=== PATIENT | female | born 1985 | race Two or more races ===

== ENCOUNTER 2025-03-20 01:23 | Emergency (ER) | payer OTHER, SELFPAY ==
[2025-03-20 01:27] VITALS: BP 127/94; PULSE 102; TEMP 36.7; O2SAT 100; BMI 25.7
--- OUTSIDE RECORDS SUMMARY | 2025-03-20 01:36 | XMS_ITS | Encounter Summary ---
Author Organization [facility] Address [address] [place] [address] Care Team Providers Care Dishcloth Folder Name Role Phone Aiden Bailey MD Primary Care Provider [phone] Encounter Details Date Type Department Care Team ([facility] Contact Info) Description 01/06/2025 Results Follow-Up [facility] [address] [facility] [address] [place] [id number] Amol Echevarria MD [address] [facility] [address] [place] [address] Social History Tobacco Use Types Packs/Day Years Used Date Smoking Tobacco: Former Cigarettes 0 08/26/2003 - 08/26/2005 Passive Smoke Exposure: Never Smokeless Tobacco: Never Alcohol Use Standard Drinks/Week Comments Yes 2 (1 standard drink = 0.6 oz pure alcohol) Caffeine intake: 1-2 cups per day coffee B1300 Health Literacy Answer Date Recor ded How often do you need to hav e someone help you when you read instructions, pamphlets, or other written material from your doctor or pharmacy? Never 05/29/2024 Humiliation, Afraid, Rape, and Kick questionnair e Answer Date Recorded Within the last year, have y ou been afraid of your partner or ex-partner? No 04/17/2023 Within the last year, have y ou been humiliated or emotionally abused in other ways by your partner or ex-partner? No Within the last year, have y ou been kicked, hit, slapped, or otherwise physically hurt by your partner or ex-partner? No 04/17/2023 Within the last year, have y ou been raped or forced to have any kind of sexual activity by your partner or ex-partner? No 04/17/2023 Social Connection and Isolat ion Panel [NHANES] Answer Date Recorded In a typical week, how many times do you talk on the phone with family, friends, or neighbors? More than three times a week 05/29/2024 How often do you get togethe r with friends or relatives? More than three times a week 05/29/2024 How often do you attend chur or yarsanism services? Never 05/29/2024 Do you belong to any clubs o r organizations such as orthodox groups, unions, fraternal or athletic groups, or school groups? No 05/29/2024 How often do you attend meet ings of the clubs or organizations you belong to? Never 05/29/2024 Are you , , di vorced, , never , or living with a partner? 05/29/2024 AUDIT-C Answer Date Recorded Q1: How often do you have a drink containing alc ohol? 2-4 times a month 05/29/2024 Q2: How many drinks containi ng alcohol do you have on a typical day when you are drinking? 1 or 2 05/29/2024 Q3: How often do you have si x or more drinks on one occasion? Never 05/29/2024 Overall Financial Resource Strain (CARDIA) Answe r Date Recorded How hard is it for you to pa y for the very basics like food, housing, medical care, and heating? Not hard at all 05/29/2024 PHQ-2 Answer Date Recorded Patient Health Questionnaire-2 Score 0 01/07/2025 [facility] - Occupational Stress Questionnaire Answer Date Recorded Do you feel stress - tense, restless, nervous, or anxious, or unable to sleep at night because your mind is troubled all the time - these days? Not at all 05/29/2024 Exercise Vital Sign Answer Date Recorde d On average, how many days pe r week do you engage in moderate to strenuous exercise (like a brisk walk)? 0 days 05/29/2024 On average, how many minutes do you engage in exercise at this level? 0 min 05/29/2024 Hunger Vital Sign Answer Date Recorded Within the past 12 months, y ou worried that your food would run out before you got the money to buy more. Never true 05/29/20 24 Within the past 12 months, t he food you bought just didn't last and you didn't have money to get more. Never true 05/29/2024 PRAPARE - Transportation Answer Date Re corded In the past 12 months, has l ack of transportation kept you from medical appointments or from getting medications? No 11/2023 In the past 12 months, has l ack of transportation kept you from meetings, work, or from getting things needed for daily living? No 05/29/2024 Housing Stability Vital Sign Answer Bhanu e Recorded In the last 12 months, was t here a time when you were not able to pay the mortgage or rent on time? No 04/17/2023 Number of Places Lived in the Last Year Not on f ile 04/17/2023 In the last 12 months, was t here a time when you did not have a steady place to sleep or slept in a residential (including now)? No 04/17/2023 Housing Stability Vital Sign Answer Bhanu e Recorded In the last 12 months, was t here a time when you were not able to pay the mortgage or rent on time? No 05/29/2024 Number of Times Moved in the Last Year Not on fi le 05/29/2024 At any time in the past 12 m [facility], were you homeless or living in a residential (including now)? No 05/29/2024 Comments No Sex and Gender Information Value Date Recorded Sex Assigned at Female 03/18/2023 8:38 AM EDT Legal Sex Female 6:50 PM EDT Gender Identity Female 03/18/2023 8:38 AM EDT Sexual Orientation Not on file documented as of this encounter Functional Status * Over the past 2 weeks, how often have you been bothered by any of the following problems? Question Answer Date of Assessment Author Little interest or pleasure in doing things Not at all 01/07/2025 8:32 AM EDT Macie Souza LP N Feeling down, depressed, or hopeless Not at all 01/07/2025 8:32 AM EDT Macie Souza LP N Patient Health Questionnaire -2 Score 0 01/07/2025 8:32 AM EDT Macie Souza LP N documented as of this encounter Plan of Treatment Upcoming Encounters Date Type Department Care Team (Late st Contact Info) Description 05/13/2025 8:30 AM EDT Office [facility] [address] [place] [address] Keli Daniel, CORN SHREDDER [address] [facility] [address] [place], [place] [id number] 01/10/2026 8:30 AM EDT Office Visit [facility]EN [facility] [address] [facility] [address] [place] [address] Amol Echevarria MD [address] [facility] [address] [place] [address] documented as of this encounter Visit Diagnoses Not on filedocumented in this encounter Care Teams Dishcloth Folder Relationship Specialty Start Date End Date Aiden Bailey MD [address] [facility] [address] [place] [address] PCP - General 03/18/23 documented as of this encounter
--- OUTSIDE RECORDS SUMMARY | 2025-03-20 01:36 | XMS_ITS | Encounter Summary ---
Author Organization [facility] Address [address] [id number] Care Team Providers Care Partition Assembly Machine Operator Name Role Phone Josias Moeller Primary Care Provider Unav ailable Source Comments In the event this information is protected by the Federal Confidentiality of Alcohol and Drug AbusePatient Records regulations: The Federal rules restrict any use of the information to criminally investigate or prosecute any alcohol or drug abuse patient.[facility] Encounter Details Date Type Department Care Team (Late st Contact Info) Description 03/20/2022 Patient Msg Neurology [address] [phone] Margie Kilgore MD [address] [facility] [address] [phone] Request an Appointment Social History Tobacco Use Types Packs/Day Years Used Date Smoking Tobacco: Never Smokeless Tobacco: Never Alcohol Use Standard Drinks/Week Comments Yes 0 (1 standard drink = 0.6 oz pur e alcohol) PHQ-2 Answer Date Recorded PHQ-2 score 0 05/19/2019 Area Deprivation Index Answer Date Augusto rded National Score (1-100), lower number is lower ri sk Not on file 08/03/2020 State Score (1-10), lower number is lower risk N ot on file 08/03/2020 Data from: https://www.neighborhoodatlas.[facility]/. Last address used for calculation Not on file 08/03/2020 Comments No Sex and Gender Information Value Date Recorded Sex Assigned at Not on file Legal Sex Female 1:52 PM EST Gender Identity Not on file Sexual Orientation Not on file COVID-19 Exposure Response Date Recorded In the last 10 days, have yo u been in contact with someone who was confirmed or suspected to have Coronavirus/COVID-19? No / Unsure 03/21/2022 12:02 PM EDT documented as of this encounter Functional Status * Are you deaf or do you have serious difficulty hearing? Answer Date of Assessment Author No 01/14/2017 3:36 PM EDT Miguel Glover RN * Are you blind or do you have serious difficulty seeing, even when wearing glasses? Answer Date of Assessment Author No 01/14/2017 3:36 PM EDT Miguel Glover RN * Do you have serious difficulty walking or climbing stairs? Answer Date of Assessment Author No 01/14/2017 3:36 PM EDT Miguel Glover RN * Do you have difficulty dressing or bathing? Answer Date of Assessment Author No 01/14/2017 3:36 PM EDT Miguel Glover RN * Because of a physical, mental, or emotional condition, do you have difficulty doing errands alone such as visiting a doctor's office or shopping? Answer Date of Assessment Author No 01/14/2017 3:36 PM EDT Miguel Glover RN documented as of this encounter Mental Status * Because of a physical, mental, or emotional condition, do you have serious difficulty concentrating, remembering, or making decisions? Answer Entry Date Author No 01/14/2017 3:36 PM EDT Miguel Glover RN documented in this encounter Plan of Treatment Not on file documented as of this encounter Visit Diagnoses Not on filedocumented in this encounter Care Teams Partition Assembly Machine Operator Relationship Specialty Start Date End Date Josias Moeller PCP - General Family Medicine 07/20/15 documented as of this encounter
--- OUTSIDE RECORDS SUMMARY | 2025-03-20 01:37 | XMS_ITS | Encounter Summary ---
Author Organization [facility] Address [address] [place] [address] Care Team Providers Care Big 6 Dealer Name Role Phone Josias Moeller Primary Care Provider Unav ailable Source Comments In the event this information is protected by the Federal Confidentiality of Alcohol and Drug AbusePatient Records regulations: The Federal rules restrict any use of the information to criminally investigate or prosecute any alcohol or drug abuse patient.[facility] Encounter Details Date Type Department Care Team (Late st Contact Info) Description 01/20/2021 Patient Msg Neurology [address] [place], [place] [phone] Provider, [facility] Scheduling Future Appointments. Social History Tobacco Use Types Packs/Day Years [...] N ot on file 08/03/2020 Data from: https://www.neighborhoodatlas.medicine.[facility].edu/. Last address used for calculation Not on file 08/03/2020 Comments No Sex and Gender Information Value Date Recorded Sex Assigned at Not on file Legal Sex Female 1:52 PM EST Gender Identity Not on file Sexual Orientation Not on file documented as of this encounter Functional Status * Are you deaf or do you have serious difficulty hearing? Answer Date of Assessment Author No 01/14/2017 3:36 PM Miguel Hoover RN * Are you blind or do you have serious difficulty seeing, even when wearing glasses? Answer Date of Assessment Author No 01/14/2017 3:36 PM Miguel Hoover RN * Do you have serious difficulty walking or climbing stairs? Answer Date of Assessment Author No 01/14/2017 3:36 PM Miguel Hoover RN * Do you have difficulty dressing or bathing? Answer Date of Assessment Author No 01/14/2017 3:36 PM Miguel Hoover RN * Because of a physical, mental, or emotional condition, do you have difficulty doing errands alone such as visiting a doctor's office or shopping? Answer Date of Assessment Author No 01/14/2017 3:36 PM Miguel Hoover RN documented as of this encounter Mental Status * Because of a physical, mental, or emotional condition, do you have serious difficulty concentrating, remembering, or making decisions? Answer Entry Date Author No 01/14/2017 3:36 PM Miguel Hoover RN documented in this encounter Plan of Treatment Not on file documented as of this encounter Visit Diagnoses Not on filedocumented in this encounter Care Teams Big 6 Dealer Relationship Specialty Start Date End Date Josias Moeller PCP - General Family Medicine 07/20/15 documented as of this encounter
--- OUTSIDE RECORDS SUMMARY | 2025-03-20 01:37 | XMS_ITS | Encounter Summary ---
Author Organization [facility] Address [address] [place] [address] Care Team Providers Care Brush Maker Name Role Phone Josias Moeller Primary Care Provider Unav ailable Source Comments In the event this information is protected by the Federal Confidentiality of Alcohol and Drug AbusePatient Records regulations: The Federal rules restrict any use of the information to criminally investigate or prosecute any alcohol or drug abuse patient.[facility] Encounter Details Date Type Department Care Team (Late st Contact Info) Description 05/26/2019 Patient Msg Neurology [address] [phone] Jodi Story, CHIP APPLYING MACHINE TENDER.[facility] [address] [place] [address] Kilgore Social History Tobacco Use Types Packs/Day Years Used Date Smoking Tobacco: Never Smokeless Tobacco: Never Alcohol Use Standard Drinks/Week Comments Yes 0 (1 standard drink = 0.6 oz pur e alcohol) PHQ-2 Answer Date Recorded PHQ-2 score 0 05/19/2019 Comments No Sex and Gender Information Value [...] on filedocumented in this encounter Care Teams Brush Maker Relationship Specialty Start Date End Date Josias Moeller PCP - General Family Medicine 07/20/15 documented as of this encounter
--- OUTSIDE RECORDS SUMMARY | 2025-03-20 01:37 | XMS_ITS | Encounter Summary ---
Author Organization [facility] Address [address] [facility] [place] [address] Care Team Providers Care Paper Novelty Maker Name Role Phone Aiden Bailey MD Primary Care Provider [phone] Reason for Visit * Reason Onset Date Comments Med Refill 09/17/2024 Encounter Details Date Type Department Care Team ([facility] Contact Info) Description 09/17/2024 Refill [facility] [address] [facility] [address] [place] [address] Nicolás Chatman MD [address] [facility] [address] [place] [phone] Inattention Social History Tobacco Use Types Packs/Day Years [...] 05/29/2024 How often do you attend chur ch or congregational services? Never 05/29/2024 Do you belong to any clubs o r organizations such as pentecostal groups, unions, fraternal or athletic groups, or [...] Date Recorded Patient Health Questionnaire-2 Score 0 01/02/2024 [facility] - Occupational Stress Questionnaire Answer Date [...] place to sleep or slept in a chcf (including now)? No 04/17/2023 Housing Stability Vital Sign Answer Bhanu e Recorded In the last 12 months, was t here a time when you were not able to pay the mortgage or rent on time? No 05/29/2024 Number of Times Moved in the Last Year Not on fi le 05/29/2024 At any time in the past 12 m [facility], were you homeless or living in a chcf (including now)? No 05/29/2024 Comments No Sex and Gender Information Value Date Recorded Sex Assigned at Female 03/18/2023 8:38 AM EDT Legal Sex Female 6:50 PM EDT Gender Identity Female 03/18/2023 8:38 AM EDT Sexual Orientation Not on file documented as of this encounter Miscellaneous Notes * Telephone Encounter - Rizwana Calderon - 09/22/2024 1:06 PM EST Pt needs Vyvanse refill it looks like it was sent 09/17/24 documented in this encounter Plan of Treatment Upcoming Encounters Date Type Department Care Team (Late st Contact Info) Description 05/13/2025 8:30 AM EDT Office Visit [facility] [address] [facility] [address] [place] [address] Keli Daniel, SECURITY SYSTEMS TECHNICIAN [address] [facility] [address] [place], [place] [phone] 01/10/2026 8:30 AM EDT Office Visit [facility] [address] [facility] [address] [place] [address] Amol Echevarria MD [address] [facility] [address] [place] [address] documented as of this encounter Visit Diagnoses Diagnosis Inattention Other specified conditions influencing health status documented in this encounter Care Teams Paper Novelty Maker Relationship Specialty Start Date End Date Aiden Bailey MD [address] [facility] [address] [place] [address] PCP - General 03/18/23 documented as of this encounter
--- OUTSIDE RECORDS SUMMARY | 2025-03-20 01:37 | XMS_ITS | Encounter Summary ---
Author Organization [facility] Address [address] [place] [address] Care Team Providers Care Mig Tig Welder Name Role Phone Josias Moeller Primary Care Provider Unav ailable Source Comments In the event this information is protected by the Federal Confidentiality of Alcohol and Drug AbusePatient Records regulations: The Federal rules restrict any use of the information to criminally investigate or prosecute any alcohol or drug abuse patient.[facility] Encounter Details Date Type Department Care Team (Late st Contact Info) Description 03/10/2019 Patient Msg Neurology [address] [phone] Margie Kilgore MD [address] [facility] [address] [place] [address] RE: Appointment Request Social History Tobacco Use Types Packs/Day Years Used Date Smoking Tobacco: Never Smokeless Tobacco: Never Alcohol Use Standard Drinks/Week Comments Yes 0 (1 standard drink = 0.6 oz pur e alcohol) Comments No Sex and Gender Information Value [...] on filedocumented in this encounter Care Teams Mig Tig Welder Relationship Specialty Start Date End Date Josias Moeller PCP - General Family Medicine 07/20/15 documented as of this encounter
--- OUTSIDE RECORDS SUMMARY | 2025-03-20 01:37 | XMS_ITS | Encounter Summary ---
Author Organization [facility] Address [address] [place] [address] Care Team Providers Care Administration Internship Name Role Phone Josias Moeller Primary Care Provider Unav ailable Source Comments In the event this information is protected by the Federal Confidentiality of Alcohol and Drug AbusePatient Records regulations: The Federal rules restrict any use of the information to criminally investigate or prosecute any alcohol or drug abuse patient.[facility] Encounter Details Date Type Department Care Team (Late st Contact Info) Description 12/03/2017 Patient Msg Neurology [address] [place], [place] [phone] Provider, Vini Blanco Social History Tobacco Use Types Packs/Day Years [...] on filedocumented in this encounter Care Teams Administration Internship Relationship Specialty Start Date End Date Josias Moeller PCP - General Family Medicine 07/20/15 documented as of this encounter
--- OUTSIDE RECORDS SUMMARY | 2025-03-20 01:37 | XMS_ITS | Encounter Summary ---
Author Organization [facility] Address [address] [place] [address] Care Team Providers Care Sound Tester Name Role Phone Aiden Bialey MD Primary Care Provider [phone] Encounter Details Date Type Department Care Team ([facility] Contact Info) Description 01/11/2025 Results Follow-Up [facility] [address] [facility] [address] [place] [address] Millicent Elder PA [address] [facility] [address] [place] [address] Social History Tobacco Use Types Packs/Day Years [...] How often do you attend chur or mosque services? Never 05/29/2024 Do you belong to any clubs o r organizations such as adventist groups, unions, fraternal or athletic groups, or [...] Recorded Patient Health Questionnaire-2 Score 0 01/07/2025 [facility] Occup[facility] ional Health - Occupational [...] any time in the past 12 m [facility], were you homeless or living in a chcf (including now)? No 05/29/2024 Comments No Sex and Gender Information Value Date Recorded Sex Assigned at Female 03/18/2023 8:38 AM EDT Legal Sex Female 6:50 PM EDT Gender Identity Female 03/18/2023 8:38 AM EDT Sexual Orientation Not on file documented as of this encounter Plan of Treatment Upcoming Encounters Date Type Department Care Team (Late st Contact Info) Description 05/13/2025 8:30 AM EDT Office Visit [facility] [address] [place] [address] Keli Daniel, CLIENT SERVICES ANALYST [id number] [place] [address] 01/10/2026 8:30 AM EDT Office Visit [facility] [address] [place] [address] Amol Echevarria MD [address] [place] [address] documented as of this encounter Visit Diagnoses Not on filedocumented in this encounter Care Teams Sound Tester Relationship Specialty Start Date End Date Aiden Bailey MD [address] [facility] [address] [place] [address] PCP - General 03/18/23 documented as of this encounter
--- OUTSIDE RECORDS SUMMARY | 2025-03-20 01:37 | XMS_ITS | Clinical Summary ---
Author Organization [facility] Address [address] [place], [place] [id number] Care Team Providers Care Supervisor Insulation Name Role Phone Josias Moeller Primary Care Provider Unav ailable Allergies Active Allergy Reactions Criticality Noted Date Comments Grass Pollen Unknown 08/01/2015 Levetiracetam Intolerance 01/10/2017 Mental health issues Sulfa (Sulfonamide Antibiotics) Unknown 08/01/2015 Medications atomoxetine (STRATTERA) 40 mg capsule Take 40 mg by mouth. 03/25/20 23 Active levonorgestrel (KYLEENA) 17.5 mcg/24 hrs (5 yrs) 19.5 mg IUD 1 Each by INTRAUTERINE route one time only for 1 dose. 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 Rare convulsions. History of nephrolithiasis 09/26/2015 Resolved Problems Problem Noted Date Diagnosed Date Resolved Date History of medication noncompliance 03/19/2018 04/04/2021 Encounters Date Type Department Care Team Description 02/22/2025 Refill Neurology [address] [place] [address] Jer Clements PA-C Refill Request from Last 3 Months Social History Tobacco Use Types Packs/Day Years Used Date Smoking Tobacco: Never Smokeless Tobacco: Never Tobacco Cessation:Counseling Given: No Alcohol Use Standard Drinks/Week Comments Yes 0 (1 standard drink = 0.6 oz pur e alcohol) PHQ-2 Answer Date Recorded PHQ-2 score 0 05/05/2023 Area Deprivation Index Answer Date Augusto rded National Score (1-100), lower number is lower ri sk 76 05/09/2023 State Score (1-10), lower number is lower risk 6 05/09/2023 Data from: https://www.neighborhoodatlas.medicine.[facility].edu/. Last address used for calculation [address] [facility] 05/09/2023 Comments No Sex and Gender Information Value Date Recorded Sex Assigned at Not on file Legal Sex Female 1:52 PM EST Gender Identity Not on file Sexual Orientation Not on file Last Filed Vital Signs Vital Sign Reading Time Taken Comments Blood Pressure 142/85 10/05/2024 10:53 AM EST Pulse 93 10/05/2024 10:53 AM EST Temperature 36.6 C (97.9 F) 10/05/2024 10:53 AM EST Respiratory Rate 18 05/09/2023 1:14 PM EDT Oxygen Saturation 98% 10/05/2024 10:53 AM EST Inhaled Oxygen Concentration - - Weight 65.8 kg (145 lb) 10/05/2024 10:53 AM EST Height 162.6 cm (5' 4 ) 10/05/2024 10:53 AM EST Body Mass Index 24.89 10/05/2024 10:53 AM EST Plan of Treatment Health Maintenance Due Date Last Done Comments DTaP,Tdap,Td Vaccine (5 - Tdap) 1997 03/18/1991, 03/09/1988, 1986, Additional history exists HIV Screening 2004 Hepatitis C Screening 2004 Hepatitis B Vaccine (1 of 3 - 19+ 3-dose series) 2005 Cervical Cancer Screening 2007 Covid-19 Vaccine ( - 2023-2 5 season) 2024 Influenza Vaccine (#1) 2025 Insurance [employer] Care Teams Supervisor Insulation Relationship Specialty Start Date End Date Josias Moeller PCP - General Family Medicine 07/20/15
--- OUTSIDE RECORDS SUMMARY | 2025-03-20 01:37 | XMS_ITS | Encounter Summary ---
Author Organization [facility] Address [address] [place] [address] Care Team Providers Care Sole Tier Name Role Phone Aiden Bailey MD Primary Care Provider [phone] Encounter Details Date Type Department Care Team (Late st Contact Info) Description 05/20/2024 Abstract [facility] [address] [facility] [address] [place] [phone] Aiden Bailey MD [address] [facility] [address] [place], [place] [id number] Social History Tobacco Use Types Packs/Day Years Used Date Smoking Tobacco: Former Cigarettes 0 08/26/2003 - 08/26/2005 Passive Smoke Exposure: Never Smokeless Tobacco: Never Alcohol Use Standard Drinks/Week Comments Yes 2 (1 standard drink = 0.6 oz pure alcohol) Caffeine intake: 1-2 cups per day coffee Humiliation, Afraid, Rape, and Kick questionnair e [...] neighbors? More than three times a week 04/17/2023 How often do you get togethe r with friends or relatives? Never 04/17/2023 How often do you attend chur or synagogue services? Patient declined 04/17/2023 Do you belong to any clubs o r organizations such as alevism groups, unions, fraternal or athletic groups, or school groups? No 04/17/2023 How often do you attend meet ings of the clubs or organizations you belong to? Patient declined 04/17/2023 Are you , , di vorced, , never , or living with a partner? 04/17/2023 AUDIT-C Answer Date Recorded Q1: How often do you have a drink containing alc ohol? 2-4 times a month 04/17/2023 Q2: How many drinks containi ng alcohol do you have on a typical day when you are drinking? 1 or 2 04/17/2023 Q3: How often do you have si x or more drinks on one occasion? Less than monthly 04/17/2023 Overall Financial Resource Strain (CARDIA) Answe r Date Recorded How hard is it for you to pa y for the very basics like food, housing, medical care, and heating? Not hard at all 04/17/2023 PHQ-2 Answer Date Recorded Patient Health Questionnaire-2 Score 0 01/02/2024 [facility] - Occupational Stress Questionnaire Answer Date Recorded Do you feel stress - tense, restless, nervous, or anxious, or unable to sleep at night because your mind is troubled all the time - these days? Only a little 04/17/2023 Exercise Vital Sign Answer Date Recorde d On average, how many days pe r week do you engage in moderate to strenuous exercise (like a brisk walk)? 1 day 04/17/2023 On average, how many minutes do you engage in exercise at this level? 20 min 04/17/2023 Hunger Vital Sign Answer Date Recorded Within the past 12 months, y ou worried that your food would run out before you got the money to buy more. Never true 04/17/20 Within the past 12 months, t he food you bought just didn't last and you didn't have money to get more. Never true 04/17/2023 PRAPARE - Transportation Answer Date Re corded In the past 12 months, has l ack of transportation kept you from medical appointments or from getting medications? No 03/27 In the past 12 months, has l ack of transportation kept you from meetings, work, or from getting things needed for daily living? No 04/17/2023 Housing Stability Vital Sign Answer [...] place to sleep or slept in a skilled nursing (including now)? No 04/17/2023 Comments No Sex and Gender Information Value [...] [facility] [address] [facility] [address] [place] [address] Keli Daniel, TRAFFIC REPRESENTATIVE [address] [facility] [address] [place], [place] [id number] 01/10/2026 8:30 AM EDT Office Visit JAIDEN ROGERS [address] [facility] [address] [place] [address] Amol Echevarria MD [address] [facility] [address] [place] [address] documented as of this encounter Visit Diagnoses Not on filedocumented in this encounter Care Teams Sole Tier Relationship Specialty Start Date End Date Aiden Bailey MD [address] [facility] [address] [place] [address] PCP - General 03/18/23 documented as of this encounter
--- OUTSIDE RECORDS SUMMARY | 2025-03-20 01:37 | XMS_ITS | Clinical Summary ---
Author Organization [facility] Address [address] [place] [address] Care Team Providers Care Hot Baller Name Role Phone Aiden Bailey MD Primary Care Provider [phone] Allergies Active Allergy Reactions Criticality Noted Date Comments Grass Pollen(K-O-R-T-Swt Ramírez) Other 08/01/2015 Other Reaction(s): Unknown Other Reaction(s): Congestion Levetiracetam Anxiety,Hallucinat ions Low 03/25/2023 Other Reaction(s): Unknown Other Reaction(s): Paranoia (psychosis) Sulfa Antibiotics Diarrhea,Dizziness High 03/25/2023 Other Reaction(s): Unknown Sulfamethoxazole 01/02/2024 Other Reaction(s): Nausea vomiting and diarrhea Tacrolimus Rash Low 03/25/2023 Medications lamoTRIgine (LaMICtal) 150 MG tablet Take 150 mg by mouth in the morning and 150 mg before bedtime. Active Levonorgestrel (Kyleena) 19.5 MG intrauterine device as directed Intrauterine 023 Active Bacillus Coagulans-Inulin (Probiotic) 1-250 BILLION-MG capsule Take 1 capsule by mouth in the morning and 1 capsule before bedtime. Active SUMAtriptan (Imitrex) 100 MG tabletIndication s:Migraine without aura and without status migrainosus, not intractable Take 1 tablet (100 mg) by mouth if needed for migraine (1 po onset of migraine may repeat in 2 hours max 2 times a day and 2 times a week) 9 tablet 2 024 Active Cetirizine HCl (ZyrTEC ALLERGY) 10 MG tablet dispersible Take 10 mg by mouth 02/02/2 024 Active omeprazole (PriLOSEC) [address] capsule Take 20 mg by mouth in the morning. Take before meals. Active cloBAZam (Onfi) 10 MG tablet Take 10 mg by mouth at bedtime Active famotidine (Pepcid) 20 MG tabletIndication s:Gastroesophage al reflux disease without esophagitis Take 1 tablet (20 mg) by mouth in the morning. PRN. 025 Active hydrocortisone (Anusol-HC) 2.5 % rectal creamIndications :External hemorrhoids Insert into the rectum in the morning and before bedtime. PRN. 025 Active lisdexamfetamine (Vyvanse) 50 MG capsuleIndicatio ns:Attention deficit hyperactivity disorder (ADHD), combined type Take 1 capsule (50 mg) by mouth in the morning. 30 capsule 025 2024 Active torsemide (Demadex) 10 MG tabletIndication s:Peripheral edema TAKE 1 TABLET BY MOUTH DAILY 60 tablet 5 025 Active potassium chloride CR (Klor-Con M10) 10 MEQ ER tabletIndication s:Peripheral edema TAKE 1 TABLET BY MOUTH DAILY DO NOT CRUSH OR CHEW 60 tablet 5 025 Active torsemide (Demadex) 10 MG tabletIndication s:Peripheral edema Take 1 tablet (10 mg) by mouth Daily 30 tablet 2 025 2024 Discontinued potassium chloride CR (Klor-Con M10) 10 MEQ ER tabletIndication s:Peripheral edema Take 1 tablet (10 mEq) by mouth Daily Do not crush or chew. 30 tablet 2 025 2024 Discontinued lisdexamfetamine (Vyvanse) 50 MG capsuleIndicatio ns:Attention deficit hyperactivity disorder (ADHD), combined type Take 1 capsule (50 mg) by mouth in the morning. 30 capsule 025 2024 Discontinued(R eorder) Active Problems Problem Noted Date Diagnosed Date Polyarthralgia 01/07/2025 Peripheral edema 01/07/2025 External hemorrhoids 06/01/2024 Thrombocytosis 05/04/2024 Recurrent epistaxis 09/27/2023 Migraine without aura and wi thout status migrainosus, not intractable 09/26/2023 Inattention 07/03/2023 Gastroesophageal reflux disease without esophagi tis 04/24/2023 Vestibular migraine 03/25/2023 Seizure disorder 03/25/2023 Other atopic dermatitis 03/25/2023 Chronic fatigue 03/25/2023 Attention deficit disorder 03/25/2023 Recurrent major depression in partial remission 03/19/2018 Anxiety 03/19/2018 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 Rare convulsions. History of nephrolithiasis 09/26/2015 Resolved Problems Problem Noted Date Diagnosed Date Resolved Date Acute bilateral thoracic back pain 07/03/2023 04/28/2024 Common migraine with intractable migraine 07/03/2023 04/28/2024 Unsteadiness on feet 03/25/2023 025 Nystagmus 03/25/2023 01/07/2025 Meniere's disease 03/25/2023 01/07/2025 Attention and concentration deficit 03/25/2023 04/28/2024 Sinus bradycardia 01/11/2017 04/28/2024 Encounters Date Type Department Care Team Description 03/08/2025 Refill [facility] [address] [place] [address] Millicent Elder PA Peripheral edema 03/04/2025 External Result Encounter [facility] External Department Unsolicited Sun Prado NP 03/04/2025 Refill [facility] [address] [place] [id number] Keli Dainel NP Attention deficit hyperactivity disorder (ADHD), combined type 02/09/2025 Refill [facility] [address] [place] [address] Keli Daniel NP Attention deficit hyperactivity disorder (ADHD), combined type 01/11/2025 Results Follow-Up [facility] [address] [place] [address] Millicent Elder PA 01/07/2025 9:30 AM EDT Office Visit [facility] [address] [place] [address] Keli Daniel, VASILIY Attention deficit hyperactivity disorder (ADHD), combined type (Primary Dx); Migraine without aura and without status migrainosus, not intractable ; 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) 01/07/2025 8:30 AM EDT [facility] [address] [facility] [address] [place] [address] Millicent Elder PA Polyarthralgia (Primary Dx); Peripheral edema; Gastroesophageal reflux disease without esophagitis; External hemorrhoids 01/07/2025 Bamboo flowsheet [facility] [address] [facility] [address] [place] [address] Millicent Elder PA 01/07/2025 Travel 01/06/2025 Results Follow-Up [facility] [address] [place] [address] Amol Echevarria MD 01/05/2025 Travel 01/04/2025 8:30 AM EDT Office Visit [facility] [address] [place] [address] Amol Echevarria MD Thrombocytosis (Primary Dx); Encounter for gynecological examination without abnormal finding; Encounter for screening for cervical cancer; Anxiety; Blood pressure instability; Seizures (HCC) 01/04/2025 Travel 01/01/2025 Travel from Last 3 Months Immunizations Immunization Administration Dates Next Due DTP 03/09/1988,1986,1986 DTaP, Unspecified 03/18/1991 HiB, unspecified 03/18/1991 MMR 03/09/1988 OPV 03/18/1991,1986,1986 Family History Medical History Relation Name Comments Anxiety disorder Father Dad Depression Father Dad Diverticulosis Father Dad Hypertension Father Dad Arthritis Maternal Grandmother Hoda Cancer Maternal Grandmother Hoda Colon cancer Maternal Grandmother Hoda Rheum arthritis Maternal Grandmother Hoda Arthritis Mother Jodi Depression Mother Jodi Hypertension Mother Jodi Migraines Mother Jodi Depression Mother's Sister Aunt Diabetes Mother's Sister Aunt Heart disease Other Thyroid disease Other Relation Name Status Comments Brother x2 Father Dad Alive Maternal Grandmother Hoda Mother Jodi Alive Mother's Sister Aunt Other Grandparents Social History Tobacco Use Types Packs/Day Years Used Date Smoking Tobacco: Former Cigarettes 0 08/26/2003 - 08/26/2005 Passive Smoke Exposure: Never Smokeless Tobacco: Never Tobacco Cessation:Counseling Given: Not Answered Alcohol Use Standard Drinks/Week Comments Yes 2 [...] How often do you attend chur or confucianist services? Never 05/29/2024 Do you belong to any clubs o r organizations such as jehovah's witness groups, unions, fraternal or athletic groups, or [...] Recorded Patient Health Questionnaire-2 Score 0 01/07/2025 [facility] - Occupational Stress Questionnaire Answer Date Recorded [...] place to sleep or slept in a fci (including now)? No 04/17/2023 Housing Stability Vital Sign Answer Bhanu e Recorded In the last 12 months, was t here a time when you were not able to pay the mortgage or rent on time? No 05/29/2024 Number of Times Moved in the Last Year Not on fi le 05/29/2024 At any time in the past 12 m [facility], were you homeless or living in a fci (including now)? No 05/29/2024 Comments No Sex and Gender Information Value Date Recorded Sex Assigned at Female 03/18/2023 8:38 AM EDT Legal Sex Female 6:50 PM EDT Gender Identity Female 03/18/2023 8:38 AM EDT Sexual Orientation Not on file Last Filed Vital Signs Vital Sign Reading Time Taken Comments Blood Pressure 106/72 01/07/2025 8:42 AM EDT Pulse 94 01/07/2025 8:42 AM EDT Temperature 37.5 C (99.5 F) 04/03/2024 11:31 AM EDT Respiratory Rate 16 01/07/2025 8:42 AM EDT Oxygen Saturation 98% 01/07/2025 8:42 AM EDT Inhaled Oxygen Concentration - - Weight 70.3 kg (155 lb) 01/07/2025 9:37 AM EDT Height 165.1 cm (5' 5 ) 01/07/2025 9:37 AM EDT Body Mass Index 25.79 01/07/2025 9:37 AM EDT Plan of Treatment Upcoming Encounters Date Type Department Care Team (Late st Contact Info) Description 05/13/2025 8:30 AM EDT Office Visit [facility] [address] [facility] [address] [place] [address] Keli Daniel, CATHEAD OPERATOR [address] [place] [address] 01/10/2026 8:30 AM EDT Office Visit [facility] [address] [place] [address] Amol Echevarria MD [address] [place] [address] Health Maintenance Due Date Last Done Comments Influenza Vaccine (#1) 2025 Pap Smear 01/01/2027 01/02/2024 Cervical Cancer Screening 01/04/2030 HPV/Cotest 01/04/2030 01/04/2025, 05/0 04/2024, 10/16/2022, Additional history exists Procedures Procedure Name Priority Date/Time Associated Diagnosis Comments CBC WITH AUTO DIFFERENTIAL Routine 03/04/2025 10:56 AM EDT RHEUMATOID FACTOR Routine 01/07/2025 1:3 2 PM EDT Polyarthralgia Peripheral edema VINH SCR, IFA W/REFL TITER/PATTERN/MPX AB CASCADE Routine 01/07/2025 1:32 PM EDT Polyarthralgia Peripheral edema TSH W/REFLEX TO FT4 Routine 01/07/2025 1 :32 PM EDT Polyarthralgia Peripheral edema C-REACTIVE PROTEIN Routine 01/07/2025 1: 32 PM EDT Polyarthralgia Peripheral edema SED RATE BY MODIFIED WESTERGREN Routine 01/07/2025 1:32 PM EDT Polyarthralgia Peripheral edema IGP, APT HPV,RFX 16/18,45 Routine 01/04/2025 12:00 AM EDT Encounter for gynecological examination without abnormal finding Encounter for screening for cervical cancer THINPREP TIS PAP AND HPV MRNA E6/E7 Routine 01/02/2024 10:04 AM EDT Encounter for gynecological examination without abnormal finding Screening for malignant neoplasm of cervix from Last 3 Months or Most Recently Relevant to Health Maintenance Results * CBC auto differential (03/04/2025 10:56 AM EDT) WBC 5.2 3.8 - 11.6 [CFU]/mL 03/04/2025 11:58 AM EDT [facility] UNCORRECTED WHITE BLOOD COUNT 5.2 3.8 - 11.6 10*3/uL 03/04/2025 11:58 AM EDT [facility] RBC 4.55 3.60 - 5.00 10*6/uL 03/04/2025 11:58 AM EDT [facility] HEMOGLOBIN 14.4 11.8 - 15.4 g/dL 03/04/2025 11:58 AM EDT [facility] HEMATOCRIT 42.0 34.0 - 46.4 % 03/04/2025 11:58 AM EDT [facility] MCV 92.2 80 - 100 fL 03/04/2025 11:58 AM EDT [facility] MCH 31.5 24.7 - 34.3 pg 03/04/2025 11:58 AM EDT [facility] MCHC 34.2 32.0 - 35.0 g/dL 03/04/2025 11:58 AM EDT [facility] RED CELL DISTRIBUTION WIDTH, RDW 13.8 11.9 - 15.3 % 03/04/2025 11:58 AM EDT [facility] PLATELET COUNT 439 150 - 450 10*3/uL 03/04/2025 11:58 AM EDT [facility] MEAN PLATELET VOLUME, MPV 7.5 6.3 - 10.7 fL 03/04/2025 11:58 AM EDT [facility] NEUTROPHILS, % 56.3 . % 03/04/2025 11:58 AM EDT [facility] LYMPHOCYTES, % 33.5 . % 03/04/2025 11:58 AM EDT [facility] MONOCYTE/MACROPHA GE, % 6.1 . % 03/04/2025 11:58 AM EDT [facility] EOSINOPHILS, % 3.5 . % 03/04/2025 11:58 AM EDT [facility] BASOPHILS, % 0.6 . % 03/04/2025 11:58 AM EDT [facility] NRBC 0.1 0 - 0.5 /100{WBC} 03/04/2025 11:58 AM EDT [facility] NEUTROPHILS 2.9 1.8 - 7.7 10*3/uL 03/04/2025 11:58 AM EDT [facility] LYMPHOCYTES 1.8 1.00 - 4.8 10*3/uL 03/04/2025 11:58 AM EDT [facility] MONOCYTES 0.3 0.0 - 0.8 10*3/uL 03/04/2025 11:58 AM EDT [facility] EOSINOPHILS 0.2 0.0 - 0.45 10*3/uL 03/04/2025 11:58 AM EDT [facility] BASOPHILS 0.0 0.0 - 0.2 10*3/uL 03/04/2025 11:58 AM EDT [facility] Blood (Blood) 03/04/2025 10: 56 AM EDT 03/04/2025 10:56 AM EDT Sun Prado CATHEAD OPERATOR LAB BLOOD ORDERABLES Final Re sult Performing Organization Address City/State/[facility] Co de Phone Number [facility] [address] [place] [address], [facility] [address] [phone] * TSH W/REFLEX TO FT4 (01/07/2025 1:32 PM EDT) TSH W/REFLEX TO FT4 1.37 mIU/L [facility] Comment: Reference Range > or = 20 Years 0.40-4.50 Ranges First trimester 0.26-2.66 Second trimester 0.55-2.73 Third trimester 0.43-2.91 01/07/2025 1:32 PM EDT 01/07/2025 1:32 PM EDT Narrative Resulting Agency Comment Performing Organization Information Site ID: QPT Name: [facility] Address: [address] [place] [address], [address] [place] [phone] Director: Jagdish Zavala MD us Millicent RAY LAB BLOOD ORDERABLES Final Res ult Performing Organization Address [facility] Co de Phone Number [facility] * VINH SCR, IFA W/REFL TITER/PATTERN/MPX AB CASCADE (01/07/2025 1:32 PM EDT) VINH SCREEN, IFA NEGATIVE NEGATIVE [facility] Comment: VINH IFA is a first line screen for detecting the presence of up to approximately 150 autoantibodies in various autoimmune diseases. A negative VINH IFA result suggests an VINH-associated autoimmune disease is not present at this time, and does not reflex further. If there is high clinical suspicion for Sjogren's syndrome, testing for anti-SS-A/Ro antibody should be considered. Anti-Cynthia-1 antibody should be considered for clinically suspected inflammatory myopathies. AC-0: Negative International Consensus on VINH Patterns (https://doi.org/10.1515/naak-1369-9216) For additional information, please refer to http://education.Funanga/faq/ISI055 (This link is being provided for informational/ educational purposes only.) 01/07/2025 1:32 PM EDT 01/07/2025 1:32 PM EDT Narrative Resulting Agency Comment Performing Organization Information Site ID: QPT Name: [facility] Address: [address] [place] [address], [address] [place] [phone] Director: Jagdish Zavala MD Millicent RAY LAB BLOOD ORDERABLES Final Res ult Performing Organization Address [facility] Co de Phone Number [facility] * Sedimentation rate, automated (01/07/2025 1:32 PM EDT) SED RATE BY MODIFIED KORYERGREN 6 < OR = 20 mm/h [facility] Blood Venous blood specimen / Unknown 01/07/2025 1:32 PM EDT 01/07/2025 1:32 PM EDT Narrative Resulting Agency Comment Performing Organization Information Site ID: QPT Name: [facility] Address: [address] [place] [address], [address] [place] [phone] Director: Jagdish Zavala MD us Millicent RAY LAB BLOOD ORDERABLES Final Res ult Performing Organization Address [facility] de Phone Number [facility] * Rheumatoid factor (01/07/2025 1:32 PM EDT) RHEUMATOID FACTOR <10 <14 IU/mL [facility] Blood Venous blood specimen / Unknown 01/07/2025 1:32 PM EDT 01/07/2025 1:32 PM EDT Narrative Resulting Agency Comment Performing Organization Information Site ID: QPT Name: [facility] Address: [address] [place] [address], [address] [place] [phone] Director: Jagdish Zavala MD us Millicent RAY LAB BLOOD ORDERABLES Final Res ult Performing Organization Address [facility] de Phone Number [facility] * C-reactive protein (01/07/2025 1:32 PM EDT) C-REACTIVE PROTEIN <3.0 <8.0 mg/L [facility] Blood Venous blood specimen / Unknown 01/07/2025 1:32 PM EDT 01/07/2025 1:32 PM EDT Narrative Resulting Agency Comment Performing Organization Information Site ID: QPT Name: [facility] Address: [address] [place] [address], [address] [place] [phone] Director: Jagdish Zavala MD us Millicent RAY LAB BLOOD ORDERABLES Final Res ult Performing Organization Address [facility] de Phone Number [facility] * IGP, APT HPV,RFX 16/18,45 (01/04/2025 12:00 AM EDT) Diagnosis: Comment [facility] Comment:NEGATIVE FOR INTRAEP ITHELIAL LESION OR MALIGNANCY. Specimen Adequacy: Comment [facility] Comment: Satisfactory for evaluation. Endocervical and/or squamous metaplastic cells (endocervical component) are present. Clinician Provided ICD10: Comment [facility] Comment: Z01.419 Z12.4 Performed By: Comment [facility] Comment:Kim Miles, Cyto logist (ASCP) Cyto Comments . [facility] Note: Comment [facility] Comment: The Pap smear is a screening test designed to aid in the detection of premalignant and malignant conditions of the uterine cervix. It is not a diagnostic procedure and should not be used as the sole means of detecting cervical cancer. Both false-positive and false-negative reports do occur. Test Methodology: Comment [facility] Comment: This liquid based ThinPrep(R) pap test was screened with the use of an image guided system. HPV Aptima Negative Negative [facility] Comment: This nucleic acid amplification test detects fourteen high-risk HPV types (16,18,31,33,35,39,45,51,52,56,58,59,66,68) without differentiation. Vaginal Fluid 01/04/2025 01/05/2025 Narrative [facility] - 01/06/2025 11:07 AM EDT Performed at: - [address] [id number] Warehouse Shift Supervisor: Yareli Ocampo MD, Phone: [phone] Performed at: - [address] [id number] Warehouse Shift Supervisor: Yareli Ocampo MD, Phone: [phone] Specimen Comment: No. of containers..01 ThinPrep Vial us Amol Echevarria MD LAB BLOOD ORDERABLES Final Res ult [facility] * THINPREP TIS PAP AND HPV MRNA E6/E7 (01/02/2024 10:04 AM EDT) CLINICAL INFORMATION [facility] Comment:None given LMP [facility] Comment:NONE GIVEN PREV. PAP [facility] Comment:NONE GIVEN PREV. BX [facility] Comment:NONE GIVEN SOURCE [facility] Comment:None given STATEMENT OF ADEQUACY [facility] Comment: Satisfactory for evaluation. Endocervical/transformation zone component absent. INTERPRETATION/RESU LT [facility] Comment: Cytology Results: Negative for intraepithelial lesion or malignancy. COMMENT [facility] Comment: This Pap test has been evaluated with computer assisted technology. DIRECTOR OF GLOBAL TALENT [facility] Comment: EVERETTE AUGUSTIN(ASCP) CT screening location: [facility], [address] [place] [id number]. (ALWAYS MESSAGE) [facility] Comment: EXPLANATORY NOTE: The Pap is a screening test for cervical cancer. It is not a diagnostic test and is subject to false negative and false positive results. It is most reliable when a satisfactory sample, regularly obtained, is submitted with relevant clinical findings and history, and when the Pap result is evaluated along with historic and current clinical information. HPV MRNA E6/E7 Not Detected Not Detected [facility] Comment: Methodology: Spray Pilot-Mediated Amplification This assay detects E6/E7 viral messenger RNA (mRNA) from 14 high-risk HPV types (16,18,31,33,35,39,45,51,52,56,58,59,66,68). Cervical sources are required for HPV testing. If a vaginal source from a patient who has had a total hysterectomy with removal of cervix was submitted, please contact the testing laboratory for alternative testing options. For additional information, please refer to http://education.JustShareIt/faq/YRD741c0 (This link if provided for information/ educational purposes only.) Swab 01/02/2024 10:0 4 AM EDT 01/03/2024 2:55 AM EDT Narrative Resulting Agency Comment Performing Organization Information Site ID: [id number] Name: [facility] Address: [address] [place] [address], [address] [place] [phone] Director: Jagdish Zavala MD Amol Echevarria MD LAB CYTOLOGY ORDERABLES Final Result [facility] from Last 3 Months or Most Recently Relevant to Health Maintenance Insurance [employer] Care Teams Hot Baller Relationship Specialty Start Date End Date Aiden Bailey MD [address] [place] [address] PCP - General 03/18/23
--- OUTSIDE RECORDS SUMMARY | 2025-03-20 01:37 | XMS_ITS | Encounter Summary ---
Author Organization [facility] Address [address] [place] [address] Care Team Providers Care Licensed Direct Entry Midwife Name Role Phone Aiden Bailey MD Primary Care Provider [phone] Encounter Details Date Type Department Care Team (Late st Contact Info) Description 10/25/2023 Abstract [facility] [address] [facility] [address] [place] [phone] Aiden Bailey MD [address] [facility] [address] [place], [place] [id number] Social History Tobacco Use Types Packs/Day Years Used Date Smoking Tobacco: Former Cigarettes 2 - 2005 Passive Smoke Exposure: Never Smokeless Tobacco: Never [...] How often do you attend chur or christianity services? Patient declined 04/17/2023 Do you belong to any clubs o r organizations such as religious groups, unions, fraternal or athletic groups, or [...] and heating? Not hard at all 04/17/2023 [facility] [place] [facility] - Occupational Stress [...] place to sleep or slept in a group home (including now)? No 04/17/2023 Comments No Sex [...] [facility] [address] [facility] [address] [place] [address] Keli Daniel, TARE MAN [address] [facility] [address] [place] [address] 01/10/2026 8:30 AM EDT Office Visit [facility] [address] [facility] [address] [place] [address] Amol Echevarria MD [address] [facility] [address] [place] [address] documented as of this encounter Visit Diagnoses Not on filedocumented in this encounter Care Teams Licensed Direct Entry Midwife Relationship Specialty Start Date End Date Aiden Bailey MD [address] [facility] [address] [place] [address] PCP - General 03/18/23 documented as of this encounter
--- OUTSIDE RECORDS SUMMARY | 2025-03-20 01:37 | XMS_ITS | Encounter Summary ---
Author Organization [facility] Address [address] [place] [address] Care Team Providers Care Wood Calker Name Role Phone Aiden Bailey MD Primary Care Provider [phone] Encounter Details Date Type Department Care Team (Late st Contact Info) Description 06/12/2024 Abstract [facility] [address] [facility] 110 [place] [phone] Aiden Bailey MD 112 [facility] 110 [place], [place] [phone] Social History Tobacco Use Types Packs/Day Years [...] How often do you attend chur or restoration services? Never 05/29/2024 Do you belong to [...] Recorded Patient Health Questionnaire-2 Score 0 01/02/2024 [facility] of Occupat ional Health - [...] place to sleep or slept in a long term (including now)? No 04/17/2023 Housing Stability Vital Sign Answer Bhanu e Recorded In the last 12 months, was t here a time when you were not able to pay the mortgage or rent on time? No 05/29/2024 Number of Times Moved in the Last Year Not on fi le 05/29/2024 At any time in the past 12 m [facility], were you homeless or living in a long term (including now)? No 05/29/2024 Comments No Sex [...] Neurology [address] [place] [address] Keli Daniel, ACCESSIONER [address] [facility] [address] Burton [facility] [place] [address] 01/10/2026 8:30 AM EDT Office Visit [facility] [address] [place] [address] Amol Echevarria MD [address] [facility] 210 [place] [address] documented as of this encounter Visit Diagnoses Not on filedocumented in this encounter Care Teams Wood Calker Relationship Specialty Start Date End Date Aiden Bailey MD 112 [facility] 110 [place] [address] PCP - General 03/18/23 documented as of this encounter
--- OUTSIDE RECORDS SUMMARY | 2025-03-20 01:37 | XMS_ITS | Encounter Summary ---
Author Organization [facility] Address [address] [id number] Care Team Providers Care Marine Equipment Design Engineer Name Role Phone Josias Moeller Primary Care Provider Unav ailable Source Comments In the event this information is protected by the Federal Confidentiality of Alcohol and Drug AbusePatient Records regulations: The Federal rules restrict any use of the information to criminally investigate or prosecute any alcohol or drug abuse patient.[facility] Encounter Details Date Type Department Care Team (Latest Contact Info) Description 07/08/2017 Patient Msg Neurology [address] [id number] Margie Kilgore MD [address] [facility] [address] [place] [address] Anticonvulsant medicaton levels Social History Tobacco Use Types Packs/Day Years [...] on filedocumented in this encounter Care Teams Marine Equipment Design Engineer Relationship Specialty Start Date End Date Josias Moeller PCP - General Family Medicine 07/20/15 documented as of this encounter
--- OUTSIDE RECORDS SUMMARY | 2025-03-20 01:37 | XMS_ITS | Encounter Summary ---
Author Organization [facility] Address [address] [place] [address] Care Team Providers Care Polysomnographic Tech Name Role Phone Josias Moeller Primary Care Provider Unav ailable Source Comments In the event this information is protected by the Federal Confidentiality of Alcohol and Drug AbusePatient Records regulations: The Federal rules restrict any use of the information to criminally investigate or prosecute any alcohol or drug abuse patient.[facility] Encounter Details Date Type Department Care Team (Late st Contact Info) Description 04/19/2023 Patient Msg Neurology [address] [place], [place] [phone] Provider, [facility] Dr. Kilgore appointment rescheudled Social History Tobacco Use Types Packs/Day Years Used Date Smoking Tobacco: Never Smokeless Tobacco: Never Alcohol Use Standard Drinks/Week Comments Yes 0 (1 standard drink = 0.6 oz pur e alcohol) PHQ-2 Answer Date Recorded PHQ-2 score 0 04/30/2022 Area Deprivation Index Answer Date Augusto rded National Score (1-100), lower number is lower ri sk 71 09/10/2022 State Score (1-10), lower number is lower risk N ot on file 09/10/2022 Data from: https://www.neighborhoodatlas.medicine.[facility].edu/. Last address used for calculation [address] 09/10/2022 Comments No Sex and Gender Information Value [...] on filedocumented in this encounter Care Teams Polysomnographic Tech Relationship Specialty Start Date End Date Josias Moeller PCP - General Family Medicine 07/20/15 documented as of this encounter
--- OUTSIDE RECORDS SUMMARY | 2025-03-20 01:37 | XMS_ITS | Encounter Summary ---
Author Organization [facility] Address [address] [place] [address] Care Team Providers Care Boot Lace Cutter Machine Name Role Phone Aiden Bailey MD Primary Care Provider [phone] Encounter Details Date Type Department Care Team (Late st Contact Info) Description 09/11/2024 Abstract [facility] [address] [facility] 110 [place] [phone] Aiden Bailey MD 112 [facility] 110 [place], [place] [phone] Social History Tobacco Use Types Packs/Day Years [...] How often do you attend chur or catholic services? Never 05/29/2024 Do you belong to any clubs o r organizations such as nondenominational groups, unions, fraternal or athletic groups, or [...] Recorded Patient Health Questionnaire-2 Score 0 01/02/2024 [facility] of Occupat ional Health - Occupational Stress [...] any time in the past 12 m [facility], were you homeless or [...] [address] [place] [address] Keli Daniel, SUPERVISOR MOTOR VEHICLE ASSEMBLY [address] [facility] [address] Burton [place] [address] 01/10/2026 8:30 AM EDT Office Visit [facility] [address] [place] [address] Amol Echevarria MD [address] [facility] 210 [place] [address] documented as of this encounter Visit Diagnoses Not on filedocumented in this encounter Care Teams Boot Lace Cutter Machine Relationship Specialty Start Date End Date Aiden Bailey MD 112 [facility] 110 [place] [address] PCP - General 03/18/23 documented as of this encounter
--- OUTSIDE RECORDS SUMMARY | 2025-03-20 01:37 | XMS_ITS | Encounter Summary ---
Author Organization [facility] Address [address] [place] [address] Care Team Providers Care Blood Donor Unit Assistant Name Role Phone Aiden Bailey MD Primary Care Provider [phone] Encounter Details Date Type Department Care Team (Late st Contact Info) Description 09/15/2024 Abstract [facility] [address] [facility] 110 [place] [phone] Aiden Bailey MD 112 [facility] 110 [place], [place] [phone] Social History Tobacco Use Types Packs/Day Years [...] How often do you attend chur or mormon services? Never 05/29/2024 Do you belong to any clubs o r organizations such as christianity groups, unions, fraternal or athletic groups, or [...] Recorded Patient Health Questionnaire-2 Score 0 01/02/2024 [facility] of Occupat ional Health - [...] place to sleep or slept in a snf (including now)? No 04/17/2023 Housing Stability Vital Sign Answer Bhanu e Recorded In the last 12 months, was t here a time when you were not able to pay the mortgage or rent on time? No 05/29/2024 Number of Times Moved in the Last Year Not on fi le 05/29/2024 At any time in the past 12 m [facility], were you homeless or living in a snf (including now)? No 05/29/2024 Comments No Sex [...] [address] [place] [address] Keli Daniel, EYELET MAKER [address] [facility] [address] Burton [facility] [address] 01/10/2026 8:30 AM EDT Office Visit [facility] [address] [place] [address] Amol Echevarria MD [address] [email or web address]] 210 [place] [address] documented as of this encounter Visit Diagnoses Not on filedocumented in this encounter Care Teams Blood Donor Unit Assistant Relationship Specialty Start Date End Date Aiden Bailey MD 112 [facility] 110 [place] [address] PCP - General 03/18/23 documented as of this encounter
--- OUTSIDE RECORDS SUMMARY | 2025-03-20 01:37 | XMS_ITS | Encounter Summary ---
Author Organization [facility] Address [address] [place], [place] [phone] Care Team Providers Care Assembly Machine Set Up Mechanic Name Role Phone Josias Moeller Primary Care Provider Unav ailable Source Comments In the event this information is protected by the Federal Confidentiality of Alcohol and Drug AbusePatient Records regulations: The Federal rules restrict any use of the information to criminally investigate or prosecute any alcohol or drug abuse patient.[facility] Encounter Details Date Type Department Care Team (Late st Contact Info) Description 01/14/2017 Abstract [facility] [place] [address] Larissa Garcia, PhD [address] [address] [id number] Social History Tobacco Use Types Packs/Day Years [...] Author No 01/14/2017 3:36 PM EDT Miguel Glover, DRE * Are you blind or do you [...] on filedocumented in this encounter Care Teams Assembly Machine Set Up Mechanic Relationship Specialty Start Date End Date Josias Moeller PCP - General Family Medicine 07/20/15 documented as of this encounter
--- OUTSIDE RECORDS SUMMARY | 2025-03-20 01:37 | XMS_ITS | Encounter Summary ---
Author Organization [facility] Address [address] [place] [address] Care Team Providers Care Coin Box Collector Name Role Phone Aiden Bailey MD Primary Care Provider [phone] Encounter Details Date Type Department Care Team (Late st Contact Info) Description 10/12/2024 Abstract [facility] [address] [facility] 110 [place] [phone] Aiden Bailey MD 112 [facility] 110 [place], [place] [phone] Social History Tobacco Use Types Packs/Day Years [...] How often do you attend chur or amish services? Never 05/29/2024 Do you belong to any clubs o r organizations such as islam groups, unions, fraternal or athletic groups, or [...] Recorded Patient Health Questionnaire-2 Score 0 01/02/2024 [facility] of Occupat ional Health - Occupational [...] place to sleep or slept in a assisted (including now)? No 04/17/2023 Housing Stability Vital Sign Answer Bhanu e Recorded In the last 12 months, was t here a time when you were not able to pay the mortgage or rent on time? No 05/29/2024 Number of Times Moved in the Last Year Not on fi le 05/29/2024 At any time in the past 12 m [facility], were you homeless or living in a assisted (including now)? No 05/29/2024 Comments No Sex [...] [address] [place] [address] Keli Daniel, APPRENTICE COSMETOLOGIST [address] [facility] [address] [facility] [place] [address] 01/10/2026 8:30 AM EDT Office Visit [facility] [address] [place] [address] Amol Echevarria MD [address] [facility] 210 [place] [address] documented as of this encounter Visit Diagnoses Not on filedocumented in this encounter Care Teams Coin Box Collector Relationship Specialty Start Date End Date Aiden Bailey MD 112 [facility] 110 [place] [address] PCP - General 03/18/23 documented as of this encounter
--- OUTSIDE RECORDS SUMMARY | 2025-03-20 01:37 | XMS_ITS | Encounter Summary ---
Author Organization [facility] Address [address] [place] [address] Care Team Providers Care Language Tutor Name Role Phone Aiden Bailey MD Primary Care Provider [phone] Encounter Details Date Type Department Care Team (Late st Contact Info) Description 04/29/2024 Abstract [facility] [address] [facility] 110 [place] [phone] Aiden Bailey MD 112 [facility] 110 [place], [place] [address] Social History Tobacco Use Types Packs/Day Years [...] How often do you attend chur or yarsani services? Patient declined 04/17/2023 Do you belong to any clubs o r organizations such as holiness groups, unions, fraternal or athletic groups, or [...] Recorded Patient Health Questionnaire-2 Score 0 01/02/2024 [facility] of Occupat ional Health - Occupational [...] [facility] [address] [facility] 310 [place] [address] Keli Daniel, DETECTIVE CHIEF [address] [facility] [address] [place], [place] [address] 01/10/2026 8:30 AM EDT Office Visit JAIDEN ROGERS [address] [facility] 210 [place] [address] Amol Echevarria MD [address] [facility] 210 [place] [address] documented as of this encounter Visit Diagnoses Not on filedocumented in this encounter Care Teams Language Tutor Relationship Specialty Start Date End Date Aiden Bailey MD 112 [facility] 110 [place] [address] PCP - General 03/18/23 documented as of this encounter
--- OUTSIDE RECORDS SUMMARY | 2025-03-20 01:37 | XMS_ITS | Encounter Summary ---
Author Organization [facility] Address [address] [place] [address] Care Team Providers Care Window Cleaner Name Role Phone Aiden Bailey MD Primary Care Provider [phone] Encounter Details Date Type Department Care Team (Late st Contact Info) Description 10/12/2024 Orders Only [facility] [address] [place] [address] Unallocated, Noms Provider, [address] [facility] [place] [address] Social History Tobacco Use Types Packs/Day Years [...] How often do you attend chur or congregational services? Never 05/29/2024 Do you belong to any clubs o r organizations such as latter day groups, unions, fraternal or athletic groups, or [...] Recorded Patient Health Questionnaire-2 Score 0 01/02/2024 [facility] of Occupat ional Health - Occupational [...] place to sleep or slept in a fdc (including now)? No 04/17/2023 Housing Stability Vital Sign Answer Bhanu e Recorded In the last 12 months, was t here a time when you were not able to pay the mortgage or rent on time? No 05/29/2024 Number of Times Moved in the Last Year Not on fi le 05/29/2024 At any time in the past 12 m [facility], were you homeless or living in a fdc (including now)? No 05/29/2024 Comments No Sex [...] Neurology [address] [place] [address] Keli Daniel, MANUAL ARTS THERAPY TEACHER [address] [address] [place] [address] 01/10/2026 8:30 AM EDT Office Visit [facility]S Rose ROGERS [address] [place] [address] Amol Echevarria MD [address] [place] [address] documented as of this encounter Visit Diagnoses Not on filedocumented in this encounter Care Teams Window Cleaner Relationship Specialty Start Date End Date Aiden Bailey MD 112 [facility] 110 [place] [address] PCP - General 03/18/23 documented as of this encounter
--- OUTSIDE RECORDS SUMMARY | 2025-03-20 01:37 | XMS_ITS | Encounter Summary ---
Author Organization [facility] Address [address] [place] [address] Care Team Providers Care Public Relations Writer Name Role Phone Aiden Bailey MD Primary Care Provider [phone] Encounter Details Date Type Department Care Team (Late st Contact Info) Description 09/30/2023 Orders Only [facility] [address] [facility] 110 [place] [address] A, Unknown Practice [address] [phone] Social History Tobacco Use Types Packs/Day Years [...] 04/17/2023 How often do you attend chur ch or zoroastrian services? Patient declined 04/17/2023 Do you belong to any clubs o r organizations such as restorationism groups, unions, fraternal or athletic groups, or [...] and heating? Not hard at all 04/17/2023 [facility] [place] of Occupat ional Health - Occupational Stress [...] place to sleep or slept in a mcfp (including now)? No 04/17/2023 Comments No Sex [...] Visit [facility] [address] [facility] 310 [place] [address] Keil Daniel NP 26[address] [facility] [address] [address] 01/10/2026 8:30 AM EDT Office Visit JAIDEN ROGERS [address] [facility] 210 [place] [address] Amol Echevarria MD [address] [facility] 210 [place] [address] documented as of this encounter Procedures Procedure Name Priority Date/Time Associated Diagnosis Comments SCANNED LABS Routine 09/27/2023 2:01 PM EST documented in this encounter Results * SCANNED LABS (09/27/2023 2:01 PM EST) us Unknown Practice A LAB CHG PERFORMABLES Final Re sult documented in this encounter Visit Diagnoses Not on filedocumented in this encounter Care Teams Public Relations Writer Relationship Specialty Start Date End Date Aiden Bailey MD 112 [facility] 110 [place] [address] PCP - General 03/18/23 documented as of this encounter
--- OUTSIDE RECORDS SUMMARY | 2025-03-20 01:37 | XMS_ITS | Encounter Summary ---
Author Organization [facility] Address [address] [place] [address] Care Team Providers Care Special Procedure Tech Name Role Phone Josias Moeller Primary Care Provider Unav ailable Source Comments In the event this information is protected by the Federal Confidentiality of Alcohol and Drug AbusePatient Records regulations: The Federal rules restrict any use of the information to criminally investigate or prosecute any alcohol or drug abuse patient.[facility] Encounter Details Date Type Department Care Team (Late st Contact Info) Description 03/19/2018 Patient Msg Neurology [address] [phone] Margie Kilgore MD 9500 [facility] [address] [place] [address] Gabapentin Social History Tobacco Use Types Packs/Day Years [...] on filedocumented in this encounter Care Teams Special Procedure Tech Relationship Specialty Start Date End Date Josias Moeller: [phone] PCP - General Family Medicine 07/20/15 documented as of this encounter
--- OUTSIDE RECORDS SUMMARY | 2025-03-20 01:37 | XMS_ITS | Encounter Summary ---
Author Organization [facility] Address [address] [place] [address] Care Team Providers Care Patient Accounts Manager Name Role Phone Josias Moeller Primary Care Provider Unav ailable Source Comments In the event this information is protected by the Federal Confidentiality of Alcohol and Drug AbusePatient Records regulations: The Federal rules restrict any use of the information to criminally investigate or prosecute any alcohol or drug abuse patient.[facility] Encounter Details Date Type Department Care Team (Late st Contact Info) Description 04/04/2024 Patient Msg Neurology [address] [phone] Margie Kilgore MD [address]00 [facility] [address] [place] [phone] Appointment Request Social History Tobacco Use Types [...] is lower risk 6 05/09/2023 Data from: https://www.[facility]/. Last address used for calculation [address] 05/09/2023 Comments No Sex and Gender Information Value Date Recorded Sex Assigned at Not on file Legal Sex Female 1:52 PM EST Gender Identity Not on file Sexual Orientation Not on file documented as of this encounter Functional Status * Are you deaf or do you have serious difficulty hearing? Answer Date of Assessment Author No 01/14/2017 3:36 PM Miguel Hooevr RN * Are you blind or do [...] on filedocumented in this encounter Care Teams Patient Accounts Manager Relationship Specialty Start Date End Date Josias Moeller PCP - General Family Medicine 07/20/15 documented as of this encounter
--- OUTSIDE RECORDS SUMMARY | 2025-03-20 01:37 | XMS_ITS | Encounter Summary ---
Author Organization [facility] Address [address] [place] [address] Care Team Providers Care Hand Washer Name Role Phone Aiden Bailey MD Primary Care Provider [phone] Reason for Visit * Reason Comments Med Refill Encounter Details Date Type Department Care Team ([facility] st Contact Info) Description 03/08/2025 Refill [facility] [place] [facility] [address] [facility] 110 [place] [address] Millicent Elder PA 112 [facility] 110 [place] [address] Peripheral edema Social History Tobacco Use Types Packs/Day Years [...] often do you attend chur ch or sabianist services? Never 05/29/2024 Do you belong to any clubs o r organizations such as gnosticist groups, unions, fraternal or athletic groups, or [...] Recorded Patient Health Questionnaire-2 Score 0 01/07/2025 [facility] of Occupat ional Health - Occupational Stress [...] a group home (including now)? No 04/17/2023 Housing Stability Vital Sign Answer Bhanu e Recorded In the last 12 months, was t here a time when you were not able to pay the mortgage or rent on time? No 05/29/2024 Number of Times Moved in the Last Year Not on fi le 05/29/2024 At any time in the past 12 m [facility], were you homeless or living in a group home (including now)? No 05/29/2024 Comments No Sex [...] [facility] [address] [place] [address] Keli Daniel, COLLECTOR OF INTERNAL REVENUE [address] [facility] [address] [place] [address] 01/10/2026 8:30 AM EDT Office Visit N[facility]S Rose ROGERS [address] [place] [address] Amol Echevarria MD [address] [place] [address] documented as of this encounter Visit Diagnoses Diagnosis Peripheral edema Edema documented in this encounter Care Teams Hand Washer Relationship Specialty Start Date End Date Aiden Bailey MD 112 [facility] 110 [place] [address] PCP - General 03/18/23 documented as of this encounter
--- OUTSIDE RECORDS SUMMARY | 2025-03-20 01:37 | XMS_ITS | Encounter Summary ---
Author Organization [facility] Address [address] [place] [address] Care Team Providers Care Dog Or Horse Racing Official Name Role Phone Josias Moeller Primary Care Provider Unav ailable Source Comments In the event this information is protected by the Federal Confidentiality of Alcohol and Drug AbusePatient Records regulations: The Federal rules restrict any use of the information to criminally investigate or prosecute any alcohol or drug abuse patient.[facility] Encounter Details Date Type Department Care Team (Late st Contact Info) Description 12/30/2019 Patient Msg Neurology [address] [phone] Margie Kilgore MD [address] [place] [address] RE: Request an Appointment Social History Tobacco Use [...] on filedocumented in this encounter Care Teams Dog Or Horse Racing Official Relationship Specialty Start Date End Date Josias Moeller PCP - General Family Medicine 07/20/15 documented as of this encounter
--- OUTSIDE RECORDS SUMMARY | 2025-03-20 01:37 | XMS_ITS | Encounter Summary ---
Author Organization [facility] Address [address] [place] [id number] Care Team Providers Care Garage Hand Name Role Phone Josias Moeller Primary Care Provider Unav ailable Source Comments In the event this information is protected by the Federal Confidentiality of Alcohol and Drug AbusePatient Records regulations: The Federal rules restrict any use of the information to criminally investigate or prosecute any alcohol or drug abuse patient.[facility] Encounter Details Date Type Department Care Team (Late st Contact Info) Description 07/14/2022 DOWNTIME NOTICE [facility] [place] [address] Note, Interface Social History Tobacco Use Types Packs/Day Years [...] N ot on file 08/03/2020 Data from: https://www.[email or web address].medicine.[facility].edu/. Last address used for calculation Not [...] Miguel Hoover RN documented in this encounter Progress Notes * Shazia Smith - 07/14/2022 2:37 AM EST Epic Scheduled Downtime: 07/14/2022 1:00:00 AM to 07/14/2022 2:26:04 AM documented in this encounter Plan of Treatment Not on file documented as of this encounter Visit Diagnoses Not on filedocumented in this encounter Care Teams Garage Hand Relationship Specialty Start Date End Date Josias Moeller PCP - General Family Medicine 07/20/15 documented as of this encounter
--- NOTE | 2025-03-20 01:41 | ED.GENADUL1 ---
HPI HPI - General Adult General Chief complaint: Urogenital-Female Stated complaint: PAIN ON LEFT SIDE Time Seen by Provider: 03/20/25 01:38 Source: patient Mode of arrival: walk-in History of Present Illness HPI narrative: presents complaining of left sided abdominal pain. Left flank and LLQ pain. No fever or urinary symptoms. No nausea. Pain started about 3 hours ago Related Data Home Medications ?Medication ?Instructions ?Recorded ?Confirmed clobazam 10 mg tablet 10 mg PO DAILY 03/20/25 03/20/25 lamotrigine 150 mg tablet 150 mg PO Q12H 03/20/25 03/20/25 torsemide 10 mg tablet 10 mg PO DAILY 03/20/25 03/20/25 Allergies Allergy/AdvReac Type Severity Reaction Status Date / Time amoxicillin (From Augmentin) Allergy Rash Verified 03/20/25 01:30 clavulanic acid (From Allergy Rash Verified 03/20/25 01:30 Augmentin) Sulfa (Sulfonamide Allergy Rash Verified 03/20/25 01:30 Antibiotics) Review of Systems ROS Status of ROS 10 or more systems reviewed and unremarkable except as noted in history and below PFSH PFSH Social History Little interest or pleasure in doing things: not at all Feeling down, depressed, or hopeless: not at all Exam Constitutional Vital Signs, click to edit/add: Last Vital Signs Temp 98.0 F 03/20/25 01:27 Pulse 102 H 03/20/25 01:27 Resp 20 03/20/25 01:27 BP 127/94 H 03/20/25 01:27 Pulse Ox 100 03/20/25 01:27 O2 Del Method Room Air 03/20/25 01:27 Common normals: no apparent distress, average body habitus, oriented x3, no limitations, healthy appearing, alert and well nourished [facility] Common normals: normocephalic and head/scalp atraumatic Eye Common normals: PERRL and EOMs intact bilaterally Respiratory Common normals: normal respiratory effort, no retractions, no use of accessory muscles and clear to auscultation bilaterally Cardio Common normals: regular rate, regular rhythm, S1 normal heart sound and S2 normal heart sound GI Other: left CVA and LLQ tenderness Extremity Common normals: normal to inspection and full ROM Neuro Common normals: oriented x3, CN's II-XII intact bilaterally, moves all extremities and no focal motor deficits Psych Appearance: grossly normal Course Vital Signs Vital signs: Vital Signs Temperature 98.0 F 03/20/25 01:27 Pulse Rate 102 H 03/20/25 01:27 Respiratory Rate 03/20/25 01:27 Blood Pressure 127/94 H 03/20/25 01:27 Pulse Oximetry 100 03/20/25 01:27 Oxygen Delivery Method Room Air 03/20/25 01:27 Temperature 98.0 F 03/20/25 01:27 Pulse Rate 102 H 03/20/25 01:27 Respiratory Rate 20 03/20/25 01:27 Blood Pressure 127/94 H 03/20/25 01:27 Pulse Oximetry 100 03/20/25 01:27 Oxygen Delivery Method Room Air 03/20/25 01:27 Medical Decision Making MDM Narrative Medical decision making narrative: presents with acute LLQ pain. workup with normal WBC and UA. CT without ureteral stones. Findings of constipation. also CT findings of multiple liver lesions. Patient states they were seen on previous CT and she will follow up with he doctor Lab Data Labs: Lab Results 03/20/25 03/20/25 Range/Units 01:34 02:00 WBC 9.3 (4.0-11.0) 10^3/uL RBC 4.44 (4.20-5.40) 10^6/uL Hgb 13.9 (12.0-16.0) g/dL Hct 40.7 (36.0-48.0) % MCV 91.7 (81.0-99.0) fL MCH 31.3 (26.7-34.0) pg MCHC 34.2 (29.9-35.2) g/dL RDW 12.9 (11.0-15.0) % Plt Count 450 (150-450) 10^3/uL MPV 9.2 L (9.5-13.5) fL Neut % (Auto) 50.3 (43.0-75.0) % Lymph % (Auto) 38.1 (20.5-60.0) % Candler % (Auto) 7.7 (1.7-12.0) % Eos % (Auto) 3.2 (0.9-7.0) % Baso % (Auto) 0.5 (0.2-2.0) % Neut # (Auto) 4.7 (1.4-6.5) 10^3/uL Lymph # (Auto) 3.6 (1.2-3.8) 10^3/uL Candler # (Auto) 0.7 (0.3-0.8) 10^3/uL Eos # (Auto) 0.3 (0.0-0.7) 10^3/uL Baso # (Auto) 0.1 (0.0-0.1) 10^3/uL Abs Immat Gran (auto) 0.02 (0.00-0.03) 10^3/uL Imm/Tot Granulo (auto) 0.2 (0.0-0.5) % Sodium 140 (136-145) mmol/L Potassium 3.7 (3.5-5.1) mmol/L Chloride 100 (98-107) mmol/L Carbon Dioxide 34.1 H (21.0-32.0) mmol/L Anion Gap 9.6 BUN 11.0 (7.0-18.0) mg/dL Creatinine 0.78 (0.55-1.02) mg/dL Est GFR ( Amer) >60 (>=60 mL/min/1.73m^2) Est GFR (Non-Af Amer) >60 (>=60 mL/min/1.73m^2) BUN/Creatinine Ratio 14.1 Glucose 103 (74-106) mg/dL Lactate 1.1 (0.4-2.0) mmol/L Calcium 9.3 (8.5-10.1) mg/dL Total Bilirubin 0.3 (0.2-1.0) mg/dL AST 20 (15-37) U/L ALT 28 (14-59) U/L Alkaline Phosphatase 70 (46-116) U/L Total Protein 7.3 (6.4-8.2) g/dL Albumin 3.8 (3.4-5.0) g/dL Globulin 3.5 g/dL Albumin/Globulin Ratio 1.1 Lipase 38.0 (16.0-77.0) U/L Urine Color Lt. yellow (YELLOW) Urine Clarity Clear (CLEAR) Urine pH 7.0 (5.0-9.0) Ur Specific Newton <=1.005 A (1.005-1.025) Urine Protein Trace (NEG/TRACE) mg/dL Urine Glucose (UA) Negative (NEGATIVE) mg/dL Urine Ketones Trace A (NEGATIVE) mg/dL Urine Occult Blood Negative (NEGATIVE) Urine Nitrite Negative (NEGATIVE) Urine Bilirubin Negative (NEGATIVE) Urine Urobilinogen 0.2 (0.2-1.0) EU/dL Ur Leukocyte Esterase Negative (NEGATIVE) Urine RBC 2-5 A (0-2) #/HPF Urine WBC 2-5 A (NONE SEEN) #/HPF Ur Squamous Epith Cells Few A (NONE/RARE) #/LPF Urine Crystals None seen (None Seen) #/HPF Urine Bacteria Trace A (NONE SEEN) #/HPF Urine Casts None seen (NONE SEEN) #/LPF Urine Mucus None seen (NONE SEEN) Ur Culture Indicated? No Discharge Plan Discharge Chief Complaint: Urogenital-Female Clinical Impression: Constipation Patient Disposition: Home, Self-Care Prescriptions / Home Meds: No Action clobazam 10 mg tablet 10 mg PO DAILY lamotrigine 150 mg tablet 150 mg PO Q12H torsemide 10 mg tablet 10 mg PO DAILY Print Language: Swedish Instructions: Constipation (ED) Additional Instructions: follow up with Dr Brown. Need to discuss findings of liver spots found on the CT Referrals: TED BROWN [Primary Care Provider, Internal Medicine] - 1 week
[2025-03-20] MEDS: 0.9 % SODIUM CHLORIDE 1,000 ML 999 ML IV (01:50)
[2025-03-20] MEDS: KETOROLAC TROMETHAMINE 30 MG/ML VIAL IVP (01:50)
[2025-03-20 02:03] LABS: Hematocrit 40.7 % (36.0-48.0); Hemoglobin 13.9 g/dL (12.0-16.0); Immature Granulocytes Abs Auto 0.02 10^3/uL (0.00-0.03); Immature Granulocytes Pct Auto 0.2 % (0.0-0.5); Lymphocytes Absolute Auto 3.6 10^3/uL (1.2-3.8); Mean Corpuscular HGB Conc 34.2 g/dL (29.9-35.2); Mean Corpuscular Hemoglobin 31.3 pg (26.7-34.0); Mean Corpuscular Volume 91.7 fL (81.0-99.0); Platelet Count 450 10^3/uL (150-450); Red Blood Count 4.44 10^6/uL (4.20-5.40); White Blood Count 9.3 10^3/uL (4.0-11.0)
[2025-03-20 02:08] LABS: Alanine Aminotransferase 28 U/L (14-59); Albumin Globulin Ratio 1.1; Albumin Level 3.8 g/dL (3.4-5.0); Alkaline Phosphatase 70 U/L (46-116); Anion Gap 9.6; Aspartate Amino Transferase 20 U/L (15-37); Blood Urea Nitrogen 11.0 mg/dL (7.0-18.0); Calcium 9.3 mg/dL (8.5-10.1); Carbon Dioxide 34.1 mmol/L (21.0-32.0); Chloride 100 mmol/L (98-107); Estimated GFR (African America >60 (>=60 mL/min/1.73m^2); Estimated GFR (Non-African Ame >60 (>=60 mL/min/1.73m^2); Globulin 3.5 g/dL; Glucose 103 mg/dL (74-106); Lipase 38.0 U/L (16.0-77.0); Potassium 3.7 mmol/L (3.5-5.1); Sodium 140 mmol/L (136-145); Total Protein 7.3 g/dL (6.4-8.2)
[2025-03-20 02:10] LABS: Lactate/Lactic Acid 1.1 mmol/L (0.4-2.0)
[2025-03-20 02:19] LABS: Glucose Urine UA NEGATIVE (NEGATIVE)
[2025-03-20 02:27] LABS: Cast Seen? NONE SEEN #/LPF (NONE SEEN); Crystals Seen? None Seen #/HPF (None Seen)
[2025-03-20 02:29] LABS: Urine Culture Indicated NO
== END 2025-03-20 03:33 | disposition home or self-care (01) ==
PROVIDERS: Emergency Provider Internal Medicine; PCP Internal Medicine
DX: K59.00 Constipation, unspecified (principal)
CPT/HCPCS: 36415; 74176; 80053; 81001; 83605; 83690; 85025; 96374; 99285; J1885

== ENCOUNTER 2025-06-10 07:42 | Outpatient (OUT) | payer OTHER, SELFPAY ==
--- OUTSIDE RECORDS SUMMARY | 2025-06-01 09:30 | XMS_ITS | Encounter Summary ---
Author Organization [facility] Address [address] [facility] [place] [address] Care Team Providers Care Security Monitor Name Role Phone Aiden Bailey MD Primary Care Provider [phone] Encounter Details Date Type Department Care Team (Late st Contact Info) Description 06/01/2025 9:30 AM EDT [facility] [address] [phone] Keli Daniel, VALIDATION INTERN [address], [place] [address] Lumbar back pain with radiculopathy affecting lower extremity (Primary Dx); Attention deficit hyperactivity disorder (ADHD), combined type; Migraine without aura and without status migrainosus, not intractable; 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 No 04/17/2023 Social Connection and Isolation Panel Answer Date Recorded In a typical week, how many times do you talk on the phone with family, friends, or neighbors? More than three times a week 05/29/2024 How often do you get togethe r with friends or relatives? More than three times a week 05/29/2024 How often do you attend chur or faith services? Never 05/29/2024 Do you belong to any clubs o r organizations such as restoration groups, unions, fraternal or athletic groups, or [...] Date Recorded Patient Health Questionnaire-2 Score 0 05/11/2025 [facility] of Occupat ional Health - Occupational Stress [...] place to sleep or slept in a intermediate (including now)? No 04/17/2023 Housing Stability Vital Sign Answer Bhanu e Recorded In the last 12 months, was t here a time when you were not able to pay the mortgage or rent on time? No 05/29/2024 Number of Times Moved in the Last Year Not on fi le 05/29/2024 At any time in the past 12 m [facility], were you homeless or living in a intermediate (including now)? No 05/29/2024 Comments No Sex and Gender Information Value Date Recorded Sex Assigned at Female 03/18/2023 8:38 AM EDT Legal Sex Female 6:50 PM EDT Gender Identity Female 03/18/2023 8:38 AM EDT Sexual Orientation Not on file documented as of this encounter Last Filed Vital Signs Vital Sign Reading Time Taken Comments Blood Pressure 120/80 06/01/2025 9:41 AM EDT Pulse - - Temperature - - Respiratory Rate - - Oxygen Saturation - - Inhaled Oxygen Concentration - - Weight 69.4 kg (153 lb) 06/01/2025 9:41 AM EDT Height 165.1 cm (5' 5 ) 06/01/2025 9:41 AM EDT Body Mass Index 25.46 06/01/2025 9:41 AM EDT documented in this encounter Progress Notes * Keli Daniel, VALIDATION INTERN - 06/01/2025 9:30 AM EDT Images from the original note were not included. Subjective Cindy Reza is a 40 y.o. female who migraines, ADHD, epilepsy History of Present Illness The patient is a 40-year-old female who presents for follow-up of ADHD and migraines. She also has a history of partial epilepsy. At the last visit, Vyvanse was increased. She reports an improvement in her condition following theincrease in Vyvanse dosage to 50 mg. However, she experienced vomiting after taking a 30 mg dose, which she attributes to its ineffectiveness. She recently experienced a migraine episode, which was effectively managed with Nurtec. She has discontinued the use of ibuprofen and naproxen due to gastrointestinal issues, including constipation. A recent CT scan revealed liver spots, prompting her to limit medication intake. She has been experiencing severe swelling in her feet, accompanied by numbness, predominantly on the right side. This has been ongoing for some time. She also reports back pain and redness in her feet. The numbness is a recent development, affecting both legs but more so the right foot. She has notundergone an EMG test before. She has a history of pinched nerves in her neck, which were managed with chiropractic treatment and Flexeril. She has never had a pinched nerve in the lower back. She continues to see a chiropractor for her neck and believes her hips are not aligned, with one side being longer than the other. She maintains an active lifestyle at work, despite sitting for extended periods. MEDICATIONS Vyvanse, Nurtec, Flexeril Review of Systems Constitutional: Negative for chills, fatigue and fever. HENT: Negative for tinnitus. Eyes: Negative for photophobia. Respiratory: Negative for shortness of breath. Cardiovascular: Negative for chest pain. Gastrointestinal: Negative for nausea and vomiting. Genitourinary: Negative for frequency. Musculoskeletal: Positive for back pain. Negative for gait problem and neck pain. Neurological: Positive for numbness and headaches. Negative for dizziness, tremors, weakness and light-headedness. Psychiatric/Behavioral: Negative. Neurological Exam Mental Status Awake, alert and oriented to person, place and time. Oriented to person, place and time. Language is fluent with no aphasia. Cranial Nerves CN II: Visual acuity is normal. Visual patel full to confrontation. CN III, IV, : Extraocular movements intact bilaterally. Normal lids and orbits bilaterally. Pupils equal round and reactive to light bilaterally. CN V: Facial sensation is normal. CN VII: Full and symmetric facial movement. CN VIII: Hearing is normal. CN IX, X: Palate elevates symmetrically. Normal gag reflex. CN XI: Shoulder shrug strength is normal. CN XII: Tongue midline without atrophy or fasciculations. Motor Strength is 5/5 throughout all four extremities. Gait Casual gait is normal including stance, stride, and arm swing. Procedures Objective Blood pressure 120/80, height 5' 5 , weight 153 lb. Physical Exam Results Imaging CT scan showed some spots on the liver. Assessment & Plan 1. Attention Deficit Hyperactivity Disorder (ADHD). The patient reports significant improvement in symptoms with the increased dose of Vyvanse to 50 mg. She experienced vomiting when taking a 30 mg dose, indicating it is ineffective. She will continuewith the 50 mg dose of Vyvanse. 2. Migraines. She experienced a migraine for the first time in a couple of months and found relief with Nurtec. She is advised to take a high-dose anti-inflammatory such as ibuprofen or naproxen if additional relief is needed. Due to stomach issues, she has stopped taking ibuprofen and naproxen regularly. She isadvised to avoid Tylenol due to potential liver impact. 3. Foot swelling and numbness. The symptoms suggest a possible pinched nerve from a slipped disk compressing the nerve, likely at L5-S1, more pronounced on the right side. The swelling could be due to inflammation from nerve compression. She is advised to avoid anti-inflammatories and consider muscle relaxers or nerve pain treatments. A referral for an EMG test will be made to confirm if the issue is isolated to the back. If not, further blood work will be considered. She is also advised to use a large roll to stretch her muscles, particularly the IT band, which can contribute to nerve entrapment. A steroid taper may be considered to help with spinal inflammation and reduce swelling. She will start taking Flexeril at bedt jasbir. I will have her complete steroid taper for inflammation. This was discussed with patient all questions answered. Total time 30 minutes spent reviewing records, performing medically appropriate exam, counseling , education, ordering medication, tests, and/or procedures, documenting health information into the health record, communicating results to the patient, and coordinating care. This clinical note was created utilizing [employer] ([employer]) documentation system. All information has beenthoroughly reviewed, corrected as necessary, and authenticated by the provider to ensure accuracy and completeness. On occasion, [employer] documentation system erroneously drops words or replaces aspoken word with a similar sounding word. Please notify with any questions or concerns regarding this clinical note. documented in this encounter Plan of Treatment Upcoming Encounters Date Type Department Care Team (Late st Contact Info) Description 01/10/2026 8:30 AM EDT Office Visit [facility] [address] [place] [phone] Amol Echevarria MD [address] [place] [address] Scheduled Orders Name Type Priority Associated Diagnoses Orde r Schedule EMG 2 Extremities Neurology Routine Lumbar back pain with radiculopathy affecting lower extremity Expected: 06/01/2025 (Approximate), Expires: 06/01/2026 documented as of this encounter Visit Diagnoses Diagnosis Lumbar back pain with radiculopathy affecting lower extremity- Primary Attention deficit hyperactivity disorder (ADHD), combined type Migraine without aura and without status migrainosus, not intractable 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
--- OUTSIDE RECORDS SUMMARY | 2025-06-10 07:46 | XMS_ITS | Encounter Summary ---
Author Organization [facility] Address [address] [place] [address] Care Team Providers Care Textile Artist Name Role Phone Aiden Bailey MD Primary Care Provider [phone] Encounter Details Date Type Department Care Team (Late st Contact Info) Description 09/15/2024 Abstract [facility] [address] [facility] [address] [place] [phone] Aiden Bailey MD [address] [facility] [address] [place], [place] [id number] Social History Tobacco Use Types Packs/Day Years [...] How often do you attend chur or pentecostalism services? Never 05/29/2024 Do you belong to any clubs o r organizations such as jew groups, unions, fraternal or athletic groups, or [...] Patient Health Questionnaire-2 Score 0 01/02/2024 [facility] of Occupat ional Health - Occupational [...] place to sleep or slept in a jail (including now)? No 04/17/2023 Housing Stability Vital Sign Answer Bhanu e Recorded In the last 12 months, was t here a time when you were not able to pay the mortgage or rent on time? No 05/29/2024 Number of Times Moved in the Last Year Not on fi le 05/29/2024 At any time in the past 12 m [facility], were you homeless or living in a jail (including now)? No 05/29/2024 Comments No Sex [...] AM EDT Office Visit [facility] [address] [place] [address] Amol Echevarria MD [address] [facility] [address] [place] [address] documented as of this encounter Visit Diagnoses Not on filedocumented in this encounter Care Teams Textile Artist Relationship Specialty Start Date End Date Aiden Bailey MD [address] [id number] PCP - General 03/18/23 documented as of this encounter
--- OUTSIDE RECORDS SUMMARY | 2025-06-10 07:46 | XMS_ITS | Clinical Summary ---
Author Organization [facility] Address [address] [place] [address] Care Team Providers Care Repairer Maintenance Building Name Role Phone Aiden Bailey MD Primary Care Provider [phone] Allergies Active Allergy Reactions Criticality Noted Date [...] 19.5 MG intrauterine device as directed Intrauterine 11/07/19 23 Active Bacillus Coagulans-Inulin (Probiotic) 1-250 BILLION-MG capsule Take 1 capsule by mouth in the morning and 1 capsule before bedtime. Active Cetirizine HCl (ZyrTEC ALLERGY) 10 MG tablet dispersible Take 10 mg by mouth 09/27/19 24 Active cloBAZam (Onfi) 10 MG tablet Take 10 mg by mouth at bedtime 11/25/19 25 Active torsemide (Demadex) 10 MG tabletIndications :Peripheral edema TAKE 1 TABLET BY MOUTH DAILY 60 tablet 5 03/08/20 25 Active potassium chloride CR (Klor-Con M10) 10 MEQ ER tabletIndications :Peripheral edema TAKE 1 TABLET BY MOUTH DAILY DO NOT CRUSH OR CHEW 60 tablet 5 03/08/20 25 Active Rimegepant Sulfate (Nurtec) 75 MG tablet dispersible Take 75 mg by mouth every other day As Needed Active famotidine (Pepcid) 20 MG tabletIndications :Gastroesophageal reflux disease without esophagitis Take 1 tablet (20 mg) by mouth Daily as needed for heartburn 05/11/20 25 Active lisdexamfetamine (Vyvanse) 50 MG capsuleIndication s:Attention deficit hyperactivity disorder (ADHD), combined type Take 1 capsule (50 mg) by mouth in the morning. 30 capsule 05/26/20 25 025 Active dexAMETHasone (Decadron) 2 MG tabletIndications :Lumbar back pain with radiculopathy affecting lower extremity 2mg 3 pills po X3 days,2 pills po daily X3 days , then 1 pill po daily X3 days then stop 9 days 18 pills 18 tablet 06/01/20 25 025 Active lisdexamfetamine (Vyvanse) 50 MG capsuleIndication s:Attention deficit hyperactivity disorder (ADHD), combined type Take 1 capsule (50 mg) by mouth in the morning. 30 capsule 04/27/20 25 025 Discontin ued(Reord er) Active Problems Problem Noted Date Diagnosed Date Polyarthralgia 01/07/2025 Peripheral edema 01/07/2025 Thrombocytosis 05/04/2024 Recurrent epistaxis 09/27/2023 Migraine without aura and wi thout status migrainosus, not intractable 09/26/2023 Gastroesophageal reflux disease without esophagi tis 04/24/2023 [...] Problem Noted Date Diagnosed Date Resolved Date External hemorrhoids 06/01/2024 025 Acute bilateral thoracic back pain 07/03/2023 04/28/2024 Inattention 07/03/2023 05/11/2025 Common migraine with intractable migraine 07/03/2023 04/28/2024 Unsteadiness on feet 03/25/2023 025 Nystagmus 03/25/2023 01/07/2025 Meniere's disease 03/25/2023 01/07/2025 Attention and concentration deficit 03/25/2023 04/28/2024 Sinus bradycardia 01/11/2017 04/28/2024 Encounters Date Type Department Care Team Description 06/01/2025 9:30 AM EDT Office Visit [facility] [address] [facility] [place] [phone] Keli Daniel NP Lumbar back pain with radiculopathy affecting lower extremity (Primary Dx); Attention deficit hyperactivity disorder (ADHD), combined type; Migraine without aura and without status migrainosus, not intractable; 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) 06/01/2025 Bamboo flowsheet [facility] [address] [place] [address] Keli Daniel NP 06/01/2025 Travel 05/26/2025 Travel 05/25/2025 Refill [facility] [address] [facility] [address] [place] [address] Nicolás Chatman MD Attention deficit hyperactivity disorder (ADHD), combined type 05/13/2025 [facility] [address] [place] [address] Unallocated, Merari Mathur MD 05/13/2025 Abstract [facility] [place] [facility] [address] [facility] [address] [place] [address] Aiden Bailey MD 05/13/2025 Abstract [facility] [place] [facility] [address] [facility] [address] [place] [address] Aiden Bailey MD 05/13/2025 Abstract [facility] [place] [facility] [address] [facility] [address] [place] [address] Aiden Bailey MD 05/13/2025 Results Follow-Up [facility] [place] [address] [place] [address] Millicent Elder PA Lipid panel 05/11/2025 8:00 AM EDT Office Visit [facility] [place] [facility] [address] [facility] [address] [place] [address] Millicent Elder PA Wellness examination (Primary Dx); Peripheral edema; Polyarthralgia; Gastroesophageal reflux disease without esophagitis; 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); Seizure disorder (HCC); Recurrent epistaxis; History of nephrolithiasis; Thrombocytosis; Other atopic dermatitis; Anxiety; Attention deficit hyperactivity disorder (ADHD), combined type ; Chronic fatigue; Migraine without aura and without status migrainosus, not intractable ; Recurrent major depression in partial remission ; Vestibular migraine 05/11/2025 Telephone [facility] [place] [facility] [address] [facility] [address] [place] [address] Millicent Elder PA 05/11/2025 Abstract [facility] [place] [address] [place] [address] Aiden Bailey MD 05/11/2025 Abstract [facility] [place] [facility] [address] [facility] [address] [place] [address] Aiden Bailey MD 05/11/2025 Bamboo flowsheet [facility] [place] [facility] [address] [facility] [address] [place] [address] Millicent Elder PA 05/11/2025 Travel 05/04/2025 Travel 04/26/2025 Refill [facility] [address] [place] [address] Keli Daniel, HEALTHCARE RISK CONTROL CONSULTANT Attention deficit hyperactivity disorder (ADHD), combined type 04/02/2025 Refill [facility] [address] [place] [place] [address] Keli Daniel NP Attention deficit hyperactivity disorder (ADHD), combined type from Last 3 Months Immunizations Immunization Administration Dates Next Due DTP 03/09/1988,1986,1986 DTaP, Unspecified 03/18/1991 HiB, unspecified 03/18/1991 MMR 03/09/1988 OPV 03/18/1991,1986,1986 Family History Medical History Relation Name Comments Anxiety disorder Father Dad Depression Father Dad Diverticulosis Father Dad Hypertension Father Dad Malig Hypertension Father Dad Arthritis Maternal Grandmother Hoda Cancer Maternal Grandmother Hoda Colon cancer Maternal Grandmother Hoda Rheum arthritis Maternal Grandmother Hoda Arthritis Mother Jodi Depression Mother Jodi Hypertension Mother Jodi Malig Hypertension Mother Jodi Migraines Mother Jodi Depression [...] How often do you attend chur or buddhism services? Never 05/29/2024 Do you belong to any clubs o r organizations such as lutheran groups, unions, fraternal or athletic groups, or [...] Recorded Patient Health Questionnaire-2 Score 0 05/11/2025 [facility] - [...] place to sleep or slept in a nursing home (including now)? No 04/17/2023 Housing Stability Vital Sign Answer Bhanu e Recorded In the last 12 months, was t here a time when you were not able to pay the mortgage or rent on time? No 05/29/2024 Number of Times Moved in the Last Year Not on fi le 05/29/2024 At any time in the past 12 m [facility], were you homeless or living in a nursing home (including now)? No 05/29/2024 Comments No Sex and Gender Information Value Date Recorded Sex Assigned at Female 03/18/2023 8:38 AM EDT Legal Sex Female 6:50 PM EDT Gender Identity Female 03/18/2023 8:38 AM EDT Sexual Orientation Not on file Last Filed Vital Signs Vital Sign Reading Time Taken Comments Blood Pressure 120/80 06/01/2025 9:41 AM EDT Pulse 94 05/11/2025 8:06 AM EDT Temperature 37.5 C (99.5 F) 04/03/2024 11:31 AM EDT Respiratory Rate 16 05/11/2025 8:06 AM EDT Oxygen Saturation 99% 05/11/2025 8:06 AM EDT Inhaled Oxygen Concentration - - Weight 69.4 kg (153 lb) 06/01/2025 9:41 AM EDT Height 165.1 cm (5' 5 ) 06/01/2025 9:41 AM EDT Body Mass Index 25.46 06/01/2025 9:41 AM EDT Plan of Treatment Upcoming Encounters Date Type Department Care Team (Late st Contact Info) Description 01/10/2026 8:30 AM EDT Office Visit [facility] [address] [place] [address] Amol Echevarria MD [address] [place] [address] Health Maintenance Due Date Last Done Comments Influenza Vaccine (#1) 2026 Postp oned from 04/26/2025 (Patient Refused) Pap Smear 01/01/2027 01/02/2024 Cervical Cancer Screening 01/04/2030 HPV/Cotest 01/04/2030 01/04/2025, 0504/2024, 10/16/2022, Additional history exists Procedures Procedure Name Priority Date/Time Associated Diagnosis Comments LIPID PANEL Routine 05/12/2025 8:31 AM EDT Wellness examination IGP, APT HPV,RFX 16/18,45 Routine 01/04/2025 12:00 AM EDT Encounter for gynecological examination without abnormal finding Encounter for screening for cervical cancer THINPREP TIS PAP AND HPV MRNA E6/E7 Routine 01/02/2024 10:04 AM EDT Encounter for gynecological examination without abnormal finding Screening for malignant neoplasm of cervix from Last 3 Months or Most Recently Relevant to Health Maintenance Results * (ABNORMAL) Lipid panel (05/12/2025 8:31 AM EDT) CHOLESTEROL, TOTAL 248(H) <200 mg/dL [facility] HDL CHOLESTEROL 75 > OR = 50 mg/dL [facility] TRIGLYCERIDES 68 <150 mg/dL [facility] LDL CHOLESTEROL 157(H) mg/dL (calc) [facility] Comment: Reference range: <100 Desirable range <100 mg/dL for primary prevention; <70 mg/dL for patients with CHD or diabetic patients with > or = 2 CHD risk factors. LDL-C is now calculated using the Kenia calculation, which is a validated novel method providing better accuracy than the Friedewald equation in the estimation of LDL-C. Scott RODRIGUEZ et al. RIK. 2013;310(19): 5989-8079 (http://education.[employer]/faq/HBE544) CHOL/HDLC RATIO 3.3 <5.0 (calc) [facility] NON HDL CHOLESTEROL 173(H) <130 mg/dL (calc) [facility] Comment: For patients with diabetes plus 1 major ASCVD risk factor, treating to a non-HDL-C goal of <100 mg/dL (LDL-C of <70 mg/dL) is considered a therapeutic option. Blood Venous blood specimen / Unknown 05/12/2025 8:31 AM EDT 05/13/2025 2:14 AM EDT Narrative [facility] - 05/13/2025 3:48 AM EDT FASTING:YES FASTING: YES Resulting Agency Comment Performing Organization Information Site ID: [id number] Name: [facility] Address: [address] [place] [address], [address] [place] [phone] Director: Jagdish Zavala MD us Millicent RAY LAB BLOOD ORDERABLES Final Res ult [facility] * IGP, APT HPV,RFX 16/18,45 (01/04/2025 12:00 AM EDT) Diagnosis: Comment [facility] Comment:NEGATIVE FOR INTRAEP ITHELIAL LESION OR MALIGNANCY. Specimen Adequacy: Comment [facility] Comment: Satisfactory for evaluation. Endocervical and/or squamous metaplastic cells (endocervical component) are present. Clinician Provided ICD10: Comment [facility] Comment: Z01.419 Z12.4 Performed By: Comment [facility] Comment:Kaitlin Esquivel logist (ASCP) Cyto Comments . [facility] Note: [...] 01/06/2025 11:07 AM EDT Performed at: - Lab[address] [id number] Investigation Division Captain: Yareli Ocampo MD, Phone: [phone] Performed at: 02 - [address] [id number] Investigation Division Captain: Yareli Ocampo MD, Phone: [phone] Specimen Comment: No. of containers..01 ThinPrep Vial us Amol Echevarria MD LAB BLOOD ORDERABLES Final Res ult [facility] * THINPREP TIS PAP AND HPV MRNA [...] has been evaluated with computer assisted technology. FIBER TECHNICIAN [facility] Comment: EVERETTE AUGUSTIN(ASCP) CT screening location: [facility] [place], [address] [place] [address], [place] [address]. (ALWAYS MESSAGE) [facility] Comment: EXPLANATORY NOTE: The Pap is a [...] HPV MRNA E6/E7 Not Detected Not Detected [facility] Comment: Methodology: Junior Accountant Bookkeeper-Mediated Amplification This assay detects E6/E7 viral messenger RNA (mRNA) from 14 high-risk HPV types (16,18,31,33,35,39,45,51,52,56,58,59,66,68). Cervical sources are required for HPV testing. If a vaginal source from a patient who has had a total hysterectomy with removal of cervix was submitted, please contact the testing laboratory for alternative testing options. For additional information, please refer to http://education.[employer]ch[employer]/faq/HUX773t0 (This link if provided for information/ educational purposes only.) Swab 01/02/2024 10:0 4 AM EDT 01/03/2024 2:55 AM EDT Narrative Resulting Agency Comment Performing Organization Information Site ID: [id number] Name: [facility] Address: [address] [place] [phone] Director: Jagdish Zavala MD Amol Echevarria MD LAB CYTOLOGY ORDERABLES Final Result [facility] from Last 3 Months or Most Recently Relevant to Health Maintenance Insurance [employer] Care Teams Repairer Maintenance Building Relationship Specialty Start Date End Date Aiden Bailey MD [address] [id number] PCP - General 03/18/23
--- OUTSIDE RECORDS SUMMARY | 2025-06-10 07:46 | XMS_ITS | Encounter Summary ---
Author Organization [facility] Address [address] [place] [address] Care Team Providers Care Bottomer Operator Name Role Phone Aiden Bailey MD Primary Care Provider [phone] Encounter Details Date Type Department Care Team (Late st Contact Info) Description 10/12/2024 Abstract [facility] [address] [facility] 110 [place] [phone] Aiden Bailey MD 112 [facility] 110 [place], [place] [id number] Social History Tobacco Use Types Packs/Day Years [...] How often do you attend chur or scientology services? Never 05/29/2024 Do you belong to any clubs o r organizations such as rastafarian groups, unions, fraternal or athletic groups, or [...] Recorded Patient Health Questionnaire-2 Score 0 01/02/2024 [facility] - [...] any time in the past 12 m [facility], were you homeless or living in a [...] AM EDT Office Visit [facility] [address] [place] [address] Amol Echevarria MD [address] [facility] [address] [place] [address] documented as of this encounter Visit Diagnoses Not on filedocumented in this encounter Care Teams Bottomer Operator Relationship Specialty Start Date End Date Aiden Bailey MD [address] [place] [id number] PCP - General 03/18/23 documented as of this encounter
--- OUTSIDE RECORDS SUMMARY | 2025-06-10 07:46 | XMS_ITS | Encounter Summary ---
Author Organization [facility] Address [address] [place] [address] Care Team Providers Care Scaffolder Name Role Phone Josias Moeller Primary Care Provider Unav ailable Source Comments In the event this information is protected by the Federal Confidentiality of Alcohol and Drug AbusePatient Records regulations: The Federal rules restrict any use of the information to criminally investigate or prosecute any alcohol or drug abuse patient.[facility] Encounter Details Date Type Department Care Team (Late st Contact Info) Description 07/14/2022 DOWNTIME [place] [facility] [place] [place] [address] Note, Interface Social History Tobacco Use Types [...] N ot on file 08/03/2020 Data from: https://www.neighborhoodatlas.medicine.[facility].edu/. Last address used for calculation Not on [...] on filedocumented in this encounter Care Teams Scaffolder Relationship Specialty Start Date End Date Josias Moeller PCP - General Family Medicine 07/20/15 documented as of this encounter
--- OUTSIDE RECORDS SUMMARY | 2025-06-10 07:46 | XMS_ITS | Encounter Summary ---
Author Organization [facility] Address [address] [place] [address] Care Team Providers Care Registration Clerk Name Role Phone Aiden Bailey MD Primary Care Provider [phone] Encounter Details Date Type Department Care Team (Late st Contact Info) Description 09/11/2024 Abstract [facility] [address] [facility] 110 [place] [phone] Aiden Bailey MD 112 [facility] 110 [place], [place] [id number] Social History Tobacco Use Types Packs/Day Years [...] How often do you attend chur or judaism services? Never 05/29/2024 Do you belong to [...] Recorded Patient Health Questionnaire-2 Score 0 01/02/2024 [facility] - Occupational [...] any time in the past [address] [facility], were you homeless or living in a [...] AM EDT Office Visit [facility] [address] [place] [address] Amol Echevarria MD [address] [facility] [address] [place] [address] documented as of this encounter Visit Diagnoses Not on filedocumented in this encounter Care Teams Registration Clerk Relationship Specialty Start Date End Date Aiden Bailey MD [address] [id number] PCP - General 03/18/23 documented as of this encounter
--- OUTSIDE RECORDS SUMMARY | 2025-06-10 07:46 | XMS_ITS | Encounter Summary ---
Author Organization [facility] Address [address] [place] [address] Care Team Providers Care Building Inspector Name Role Phone Josias Moeller Primary Care Provider Unav ailable Source Comments In the event this information is protected by the Federal Confidentiality of Alcohol and Drug AbusePatient Records regulations: The Federal rules restrict any use of the information to criminally investigate or prosecute any alcohol or drug abuse patient.[facility] Encounter Details Date Type Department Care Team (Late st Contact Info) Description 12/30/2019 Patient Msg Neurology [address] [id number] Margie Kilgore MD [address] [facility] [address] [place] [address] RE: Request an Appointment Social [...] on filedocumented in this encounter Care Teams Building Inspector Relationship Specialty Start Date End Date Josias Moeller PCP - General Family Medicine 07/20/15 documented as of this encounter
--- OUTSIDE RECORDS SUMMARY | 2025-06-10 07:46 | XMS_ITS | Encounter Summary ---
Author Organization [facility] Address [address] [place] [address] Care Team Providers Care Automotive Design Drafter Name Role Phone Aiden Bailey MD Primary Care Provider [phone] Encounter Details Date Type Department Care Team (Late st Contact Info) Description 10/12/2024 Orders Only [facility] [address] [place] [address] Unallocated, [facility] Provider, [address] [facility] [place] [address] Social History Tobacco Use Types Packs/Day Years [...] How often do you attend chur or temple services? Never 05/29/2024 Do you belong to any clubs o r organizations such as sikh groups, unions, fraternal or athletic groups, or [...] Recorded Patient Health Questionnaire-2 Score 0 01/02/2024 [facility] [...] any time in the past 12 m [facility], were you homeless or living in a [...] Description 01/10/2026 8:30 AM EDT Office Visit [facility] [address] [place] [address] Amol Echevarria MD [address] [place] [address] documented as of this encounter Visit Diagnoses Not on filedocumented in this encounter Care Teams Automotive Design Drafter Relationship Specialty Start Date End Date Aiden Bailey MD [address] [id number] PCP - General 03/18/23 documented as of this encounter
--- OUTSIDE RECORDS SUMMARY | 2025-06-10 07:46 | XMS_ITS | Continuity of Care Document ---
Author Organization [facility] Address [address] [place] [address] Phone Allergies, Adverse Reactions, Alerts Allergen Type Severity Reaction Last Updated Verified Status Comments levetiracetam Allergy Moderate Anxiety October 02, 2024 10:40am Yes Active anxiety and hallucinations Sulfa (Sulfonamide Antibiotics) Allergy Moderate Diarrhea October 02, 2024 10:40am Yes Active diarrhea and dizziness tacrolimus Allergy Moderate Rash October 02, 2024 10:40am Yes Active Social History Smoking Status Status Start Date End Date Date of Observa tion Ex-smoker (finding) October 12, 2024 8:39am Observation Status Observation Response Date of Response Legal Sex Female (finding) Sex Assigned At Female 1985 Family History Relationship Condition Age at Onset Recorded Date/T jasbir mother Hypertension Unknown Migraine headache Unknown Depression Unknown father Hypertension Unknown Diverticular disease Unknown maternal grandmother Malignant neoplasm of colon Unkno wn Rheumatoid arthritis Unknown Problems Active Problems Medical Problem Onset Date Status Change in bowel habits Unknown Active Family history of colon cancer Unknown A ctive Dyspepsia Unknown Active Thrombocytosis Unknown Active Blood in stool Unknown Active Hemorrhoids Unknown Active Constipation Unknown Active Encounter for screening colonoscopy Unknown Active Medications Medication Status Dose Units Route Directions Qty Days St art Date Stop Date End Date Instructions Adherence Linaclotide (Linzess) 290 mcg capsule Active 290 MCG PO Daily 30 30 ua ry 2024 1:00am Unknown Alprazolam 0.25 mg tablet Active 0.25 MG PO Daily as needed for anxiety 2023 12:00a m Unknown Atomoxetine 40 mg capsule Discont inued 40 MG PO Daily 2023 12:00a m Febru adelina2024 10:42 am Lactobacill us Combination No.4 (Probiotic) 3 billion cell capsule Active 3000 MMU CELLS PO Daily 2023 12:00a m administer with a meal Unknown Cetirizine (All Day Allergy (Cetirizine )) 10 mg tablet Active 10 MG PO Daily as needed for allergy symptoms 2023 12:00a m Unknown Gabapentin 300 mg capsule Active 300 MG PO Daily 2023 12:00a m Unknown Hydrochloro thiazide 25 mg tablet Active 25 MG PO Daily 2023 12:00a m Unknown Lamotrigine 150 mg tablet Active 150 MG PO Twice daily 2023 12:00a m Unknown Levonorgest rel (Kyleena) 17.5 mcg/24 hr (5 yrs) 19.5 mg intrauterin e device Active 1 DEVICE INTRAU SADA As Directed 2023 12:00a m Unknown Omeprazole Magnesium 20 mg tablet,don yed release (DR/EC) Active 20 MG PO Daily 2023 12:00a m Unknown Sumatriptan Succinate 100 mg tablet Active 0 PO .COMPLEX 2023 12:00a m take 1 tab at onset of headache; if no relief, may repeat 1 tab after at least 2 hrs; max = 2 tabs/24 hrs PO Unknown Famotidine 20 mg tablet Discont inued 20 MG PO Daily 2023 12:00a m [facility] [place] 10:42 am Docusate Sodium (Colace) 100 mg capsule Discont inued 100 MG PO Daily 2023 12:00a m [facility] 2024 10:42 am Cholecalcif oumou (Vitamin D3) 125 mcg (5,000 unit) capsule Active 125 MCG PO Daily 2023 12:00a m Unknown Ascorbate Calcium (Vitamin C) 500 mg tablet Active 500 MG PO Daily 2023 12:00a m Unknown Calcium Carbonate 500 mg calcium (1,250 mg) tablet Active 500 MG PO Daily 2023 12:00a m Unknown Sod Picosulf-Ma g Ox-Citric Ac (Clenpiq) 10 mg-3.5 gram- 12 gram/175 mL solution Active 175 ML PO Daily 2 2024 1:00am take first dose at 3:00 PM followed by four 8oz glasses of liquid take second dose at 9:00 PM followed by 3 8oz glasses of liquid please dispense 2 kits for 2 day bowel prep for colonoscopy Unknown Lisdexamfet amine (Vyvanse) 30 mg capsule Active 30 MG PO Daily 2024 1:00am Unknown Advance Directives Advance Directive Response Recorded Date/ Time Advance Directives No August 02, 2017 4:30pm Insurance Providers Guarantor Cindy Reza Address [address] [place] [phone] Contact Info. Home Phone: Payer Policy Id Subscriber's Name Subscriber Id Effectiv e Date Expiration Date Darwin COLLADO [id number] Cindy Reza [id number]
--- OUTSIDE RECORDS SUMMARY | 2025-06-10 07:46 | XMS_ITS | Encounter Summary ---
Author Organization [facility] Address [address] [place] [address] Care Team Providers Care Dog Or Horse Racing Official Name Role Phone Aiden Bailey MD Primary Care Provider [phone] Encounter Details Date Type Department Care Team (Late st Contact Info) Description 01/11/2025 Results Follow-Up [facility] [address] [facility] 110 [place] [address] Millicent Elder PA [address] [facility] 110 [place] [address] Sedimentation rate, automated, C-reactive protein, TSH W/REFLEX TO FT4, Additional followed-up results: 2 Social History Tobacco Use Types Packs/Day Years [...] How often do you attend chur or anabaptist services? Never 05/29/2024 Do you belong to any clubs o r organizations such as mormonism groups, unions, fraternal or athletic groups, or [...] Recorded Patient Health Questionnaire-2 Score 0 01/07/2025 [facility] of Occupat ional Health - Occupational [...] place to sleep or slept in a [place] care facility (including now)? No 04/17/2023 Housing Stability Vital Sign Answer Bhanu e Recorded In the last 12 months, was t here a time when you were not able to pay the mortgage or rent on time? No 05/29/2024 Number of Times Moved in the Last Year Not on fi le 05/29/2024 At any time in the past 12 m [facility], were you homeless or living in a [place] health care facility (including now)? No 05/29/2024 Comments No Sex [...] Description 01/10/2026 8:30 AM EDT Office Visit JAIDEN ROGERS [address] [place] [address] Amol Echevarria MD [address] [place] [address] documented as of this encounter Visit Diagnoses Not on filedocumented in this encounter Care Teams Dog Or Horse Racing Official Relationship Specialty Start Date End Date Aiden Bailey MD [address] [facility] 110 [place] [address] PCP - General 03/18/23 documented as of this encounter
--- OUTSIDE RECORDS SUMMARY | 2025-06-10 07:46 | XMS_ITS | Encounter Summary ---
Author Organization [facility] Address [address] [place] [address] Care Team Providers Care Wardsperson Name Role Phone Josias Moeller Primary Care Provider Unav ailable Source Comments In the event this information is protected by the Federal Confidentiality of Alcohol and Drug AbusePatient Records regulations: The Federal rules restrict any use of the information to criminally investigate or prosecute any alcohol or drug abuse patient.[facility] Encounter Details Date Type Department Care Team (Late st Contact Info) Description 03/20/2022 Patient Msg Neurology [address] [phone] Margie Kilgore MD [address] [facility] [address] [place] [phone] Request an Appointment Social History Tobacco Use [...] N ot on file 08/03/2020 Data from: https://www.neighborhoodatlas.[facility]/. Last address used for calculation [...] on filedocumented in this encounter Care Teams Wardsperson Relationship Specialty Start Date End Date Josias Moeller PCP - General Family Medicine 07/20/15 documented as of this encounter
--- OUTSIDE RECORDS SUMMARY | 2025-06-10 07:46 | XMS_ITS | Encounter Summary ---
Author Organization [facility] Address [address] [place] [address] Care Team Providers Care Parts Representative Name Role Phone Josias Moeller Primary Care Provider Unav ailable Source Comments In the event this information is protected by the Federal Confidentiality of Alcohol and Drug AbusePatient Records regulations: The Federal rules restrict any use of the information to criminally investigate or prosecute any alcohol or drug abuse patient.[facility] Encounter Details Date Type Department Care Team (Late st Contact Info) Description 04/19/2023 Patient Msg Neurology [address] [place], [place] [phone] Provider, Ccf Dr. Kilgore appointment rescheudled Social [...] N ot on file 09/10/2022 Data from: https://www.neighborhoodatlas.medicine.[facility].edu/. Last address used for calculation [address] [...] on filedocumented in this encounter Care Teams Parts Representative Relationship Specialty Start Date End Date Josias Moeller PCP - General Family Medicine 07/20/15 documented as of this encounter
--- OUTSIDE RECORDS SUMMARY | 2025-06-10 07:46 | XMS_ITS | Encounter Summary ---
Author Organization [facility] Address [address] [facility] [place] [address] Care Team Providers Care Director Of Front Office Name Role Phone Aiden Bailey MD Primary Care Provider Reason for Visit * Reason Onset Date Comments Med Refill 09/17/2024 Encounter Details Date Type Department Care Team ([facility] Contact Info) Description 09/17/2024 Refill [facility] [address] [facility] [address] [place] [address] Nicolás Chatman MD [address] [facility] [address] [place] [phone] Inattention Social History Tobacco Use Types Packs/Day [...] often do you attend chur ch or denominational services? Never 05/29/2024 Do you belong to any clubs o r organizations such as yarsanism groups, unions, fraternal or athletic groups, or [...] Recorded Patient Health Questionnaire-2 Score 0 01/02/2024 [facility] [place] of Occupat ional Health - Occupational Stress [...] place to sleep or slept in a detention (including now)? No 04/17/2023 Housing Stability Vital Sign Answer Bhanu e Recorded In the last 12 months, was t here a time when you were not able to pay the mortgage or rent on time? No 05/29/2024 Number of Times Moved in the Last Year Not on fi le 05/29/2024 At any time in the past 12 m [facility], were you homeless or living in a detention (including now)? No 05/29/2024 Comments No Sex and Gender Information Value Date Recorded Sex Assigned at Female 03/18/2023 8:38 AM EDT Legal Sex Female 6:50 PM EDT Gender Identity Female 03/18/2023 8:38 AM EDT Sexual Orientation Not on file documented as of this encounter Miscellaneous Notes * Telephone Encounter - Rizwana Caldreon - 09/22/2024 1:06 PM EST Pt needs Vyvanse refill it looks like it was sent 09/17/24 documented in this encounter Plan of Treatment Upcoming Encounters Date Type Department Care Team (Late st Contact Info) Description 01/10/2026 8:30 AM EDT Office Visit NOMAnnetta ROGERS [address] [place] [address] Amol Echevarria MD [address] [facility] 210 [place] [address] documented as of this encounter Visit Diagnoses Diagnosis Inattention Other specified conditions influencing health status documented in this encounter Care Teams Director Of Front Office Relationship Specialty Start Date End Date Aiden Bailey MD 112 [facility] 110 [place] [address] PCP - General 03/18/23 documented as of this encounter
--- OUTSIDE RECORDS SUMMARY | 2025-06-10 07:46 | XMS_ITS | Encounter Summary ---
Author Organization [facility] Address [address] [place] [address] Care Team Providers Care Barge Pilot Name Role Phone Aiden Bailey MD Primary Care Provider [phone] Encounter Details Date Type Department Care Team ([facility] Contact Info) Description 01/06/2025 Results Follow-Up [facility] [address] [facility] 210 [place] [address] Amol Echevarria MD [address] [facility] 210 [place] [address] IGP, APT HPV,RFX 16/18,45 Social History Tobacco Use Types Packs/Day Years [...] How often do you attend chur or hoahaoism services? Never 05/29/2024 Do you belong to any clubs o r organizations such as congregational groups, unions, fraternal or athletic groups, or [...] Recorded Patient Health Questionnaire-2 Score 0 01/07/2025 [facility] of Occupat ional Health - [...] any time in the past 12 m [facility], were you homeless or living in a [...] Visit JAIDEN ROGERS [address] [place] [address] Amol Echevarria MD [address] [place] [address] documented as of this encounter Visit Diagnoses Not on filedocumented in this encounter Care Teams Barge Pilot Relationship Specialty Start Date End Date Aiden Bailey MD 112 [facility] 110 [place] [address] PCP - General 03/18/23 documented as of this encounter
--- OUTSIDE RECORDS SUMMARY | 2025-06-10 07:47 | XMS_ITS | Encounter Summary ---
Author Organization [facility] Address [address] [place] [address] Care Team Providers Care Gas Station Operator Name Role Phone Aiden Bailey MD Primary Care Provider [phone] Encounter Details Date Type Department Care Team (Late st Contact Info) Description 05/13/2025 Abstract [facility] [address] [facility] 110 [place] [phone] Aiden Bailey MD 112 [facility] 110 [place], [place] [address] Social History Tobacco Use Types Packs/Day Years [...] How often do you attend chur or jehovah's witness services? Never 05/29/2024 Do you belong to [...] Recorded Patient Health Questionnaire-2 Score 0 05/11/2025 [facility] of Occupat ional Health [...] any time in the past 12 m [facility], were you homeless or living [...] 01/10/2026 8:30 AM EDT Office Visit [facility] R[facility]e ROGERS [address] [place] [address] Amol Echevarria MD [address] [facility] 210 [place] [address] documented as of this encounter Visit Diagnoses Not on filedocumented in this encounter Care Teams Gas Station Operator Relationship Specialty Start Date End Date Aiden Bailey MD [address] [phone] PCP - General 03/18/23 documented as of this encounter
--- OUTSIDE RECORDS SUMMARY | 2025-06-10 07:47 | XMS_ITS | Encounter Summary ---
Author Organization [facility] Address [address] [place] [address] Care Team Providers Care Formal Service Waiter Name Role Phone Josias Moeller Primary Care Provider Unav ailable Source Comments In the event this information is protected by the Federal Confidentiality of Alcohol and Drug AbusePatient Records regulations: The Federal rules restrict any use of the information to criminally investigate or prosecute any alcohol or drug abuse patient.[facility] Encounter Details Date Type Department Care Team (Late st Contact Info) Description 03/19/2018 Patient Msg Neurology [address] [phone] Margie Kilgore MD [address] [facility] [address] [place] [address] Gabapentin Social History Tobacco Use [...] on filedocumented in this encounter Care Teams Formal Service Waiter Relationship Specialty Start Date End Date Josias Moeller: [phone] PCP - General Family Medicine 07/20/15 documented as of this encounter
--- OUTSIDE RECORDS SUMMARY | 2025-06-10 07:47 | XMS_ITS | Encounter Summary ---
Author Organization [facility] Address [address] [place] [address] Care Team Providers Care Remote Broadcast Technician Name Role Phone Josias Moeller Primary Care Provider Unav ailable Source Comments In the event this information is protected by the Federal Confidentiality of Alcohol and Drug AbusePatient Records regulations: The Federal rules restrict any use of the information to criminally investigate or prosecute any alcohol or drug abuse patient.[facility] Encounter Details Date Type Department Care Team (Late st Contact Info) Description 12/03/2017 Patient Msg Neurology [address] [place], [place] [phone] Provider, Vini Blanco Social History Tobacco Use [...] 01/14/2017 3:36 PM Miguel Hooevr RN * Do you have difficulty dressing [...] on filedocumented in this encounter Care Teams Remote Broadcast Technician Relationship Specialty Start Date End Date Josias Moeller PCP - General Family Medicine 07/20/15 documented as of this encounter
--- OUTSIDE RECORDS SUMMARY | 2025-06-10 07:47 | XMS_ITS | Encounter Summary ---
Author Organization [facility] Address [address] [place] [address] Care Team Providers Care Booster Pump Operator Name Role Phone Aiden Bailey MD Primary Care Provider [phone] Encounter Details Date Type Department Care Team (Late st Contact Info) Description 05/11/2025 Abstract [facility] [address] [facility] 110 [place] [phone] Aiden Bailey MD 112 [facility] 110 [place], [place] [phone] Social History Tobacco Use Types Packs/Day Years [...] How often do you attend chur or restorationism services? Never 05/29/2024 Do you belong to [...] Recorded Patient Health Questionnaire-2 Score 0 05/11/2025 [facility] of Occupat ional Health - Occupational [...] time in the past 12 m [facility], were you homeless or living in [...] pleasure in doing things Not at all 05/11/2025 7:59 AM EDT Macie Souza LP N Feeling down, depressed, or hopeless Not at all 05/11/2025 7:59 AM EDT Macie Souza LP N Patient Health Questionnaire -2 Score 0 05/11/2025 7:59 AM EDT Macie Souza LP N documented as of this encounter Plan of Treatment Upcoming Encounters Date Type Department Care Team (Late st Contact Info) Description 01/10/2026 8:30 AM EDT Office Visit [facility] Rose ROGERS [address] [place] [address] Amol Echevarria MD [address] [facility] 210 [place] [address] documented as of this encounter Visit Diagnoses Not on filedocumented in this encounter Care Teams Booster Pump Operator Relationship Specialty Start Date End Date Aiden Bailey MD 112 [facility] 110 [place] [address] PCP - General 03/18/23 documented as of this encounter
--- OUTSIDE RECORDS SUMMARY | 2025-06-10 07:47 | XMS_ITS | Encounter Summary ---
Author Organization [facility] Address [address] [place] [address] Care Team Providers Care Commercial Finance Analyst Name Role Phone Aiden Bailey MD Primary Care Provider [phone] Encounter Details Date Type Department Care Team (Latest Contact Info) Description 06/01/2025 Travel Social History Tobacco Use Types Packs/Day Years [...] often do you attend chur ch or oriental orthodox services? Never 05/29/2024 Do you belong to any clubs o r organizations such as denominational groups, unions, fraternal or athletic groups, or [...] Recorded Patient Health Questionnaire-2 Score 0 05/11/2025 [facility] of Occupat ional Health - [...] any time in the past 12 m [facility], were you homeless or living in [...] ROGERS [address] [place] [address] Amol Echevarria MD [address] [place] [address] documented as of this encounter Visit Diagnoses Not on filedocumented in this encounter Care Teams Commercial Finance Analyst Relationship Specialty Start Date End Date Aiden Bailey MD [address] [facility] 110 [place] [address] PCP - General 03/18/23 documented as of this encounter
--- OUTSIDE RECORDS SUMMARY | 2025-06-10 07:47 | XMS_ITS | Encounter Summary ---
Author Organization [facility] Address [address] [place] [address] Care Team Providers Care Seal Extrusion Operator Name Role Phone Aiden Bailey MD Primary Care Provider [phone] Encounter Details Date Type Department Care Team (Late st Contact Info) Description 06/01/2025 Bamboo flowsheet [facility] [address] [place] [address] Keli Daniel, CLASSICS TEACHER [address] [facility] [address] [address] Social History Tobacco Use Types Packs/Day Years [...] How often do you attend chur or latter-day services? Never 05/29/2024 Do you belong to any clubs o r organizations such as baptism groups, unions, fraternal or athletic groups, or [...] Recorded Patient Health Questionnaire-2 Score 0 05/11/2025 [facility] of Occupat ional Health - Occupational [...] place to sleep or slept in a long-term (including now)? No 04/17/2023 Housing Stability Vital Sign Answer Bhanu e Recorded In the last 12 months, was t here a time when you were not able to pay the mortgage or rent on time? No 05/29/2024 Number of Times Moved in the Last Year Not on fi le 05/29/2024 At any time in the past 12 m [facility], were you homeless or living in a long-term (including now)? No 05/29/2024 Comments No Sex [...] AM EDT Office Visit [facility] ROGERS [address] [place] [address] Amol Echevarria MD [address] [place] [address] documented as of this encounter Visit Diagnoses Not on filedocumented in this encounter Care Teams Seal Extrusion Operator Relationship Specialty Start Date End Date Aiden Bailey MD [address] [phone] PCP - General 03/18/23 documented as of this encounter
--- OUTSIDE RECORDS SUMMARY | 2025-06-10 07:47 | XMS_ITS | Encounter Summary ---
Author Organization [facility] Address [address] [place] [address] Care Team Providers Care Spray Cementer Name Role Phone Aiden Bailey MD Primary Care Provider [phone] Encounter Details Date Type Department Care Team (Late st Contact Info) Description 04/29/2024 Abstract [facility] [address] [facility] 110 [place] [phone] Aiden Bailey MD 112 [facility] 110 [place], [place] [phone] Social History Tobacco Use Types Packs/Day Years [...] How often do you attend chur or presybeterian services? Patient declined 04/17/2023 Do you belong [...] Recorded Patient Health Questionnaire-2 Score 0 01/02/2024 [facility] - Occupational Stress Questionnaire Answer Date [...] place to sleep or slept in a halfway (including now)? No 04/17/2023 Comments No Sex [...] Office Visit JAIDEN ROGERS [address] [facility] 210 [place] [address] Amol E[facility]varria MD [address] [facility] [place] [address] documented as of this encounter Visit Diagnoses Not on filedocumented in this encounter Care Teams Spray Cementer Relationship Specialty Start Date End Date Aiden Bailey MD [address] [place] [address] PCP - General 03/18/23 documented as of this encounter
--- OUTSIDE RECORDS SUMMARY | 2025-06-10 07:47 | XMS_ITS | Encounter Summary ---
Author Organization [facility] Address [address] [place] [address] Care Team Providers Care Press Cleaner Name Role Phone Josias Moeller Primary Care Provider Unav ailable Source Comments In the event this information is protected by the Federal Confidentiality of Alcohol and Drug AbusePatient Records regulations: The Federal rules restrict any use of the information to criminally investigate or prosecute any alcohol or drug abuse patient.[facility] Encounter Details Date Type Department Care Team (Late st Contact Info) Description 04/04/2024 Patient Msg Neurology [address] [phone] Margie Kilgore MD 9500 [facility] [address] [place] [phone] Appointment Request Social History Tobacco Use Types [...] is lower risk 6 05/09/2023 Data from: https://www.[facility]zer health systemlas.[facility]/. Last address used for calculation [address] [...] on filedocumented in this encounter Care Teams Press Cleaner Relationship Specialty Start Date End Date Josias Moeller PCP - General Family Medicine 07/20/15 documented as of this encounter
--- OUTSIDE RECORDS SUMMARY | 2025-06-10 07:47 | XMS_ITS | Clinical Summary ---
Author Organization [facility] Address [address] [place], [place] [address] Care Team Providers Care Blasting Coal Miner Name Role Phone Josias Moeller Primary Care Provider Unav ailable Allergies Active Allergy Reactions Criticality Noted Date Comments Grass Pollen Unknown 08/01/2015 Levetiracetam Intolerance 01/10/2017 Mental health issues Sulfa (Sulfonamide Antibiotics) Unknown 08/01/2015 Medications atomoxetine (STRATTERA) 40 mg capsule Take 40 mg by mouth. 3 Active levonorgestrel (KYLEENA) 17.5 mcg/24 hrs (5 yrs) 19.5 mg IUD 1 Each by INTRAUTERINE route one time only for 1 dose. 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 90 tablet 1 5 08/23/20 25 Active Active Problems Problem Noted Date Diagnosed Date [...] Date History of medication noncompliance 03/19/2018 04/04/2021 Social History Tobacco Use Types Packs/Day Years [...] is lower risk 6 05/09/2023 Data from: https://www.neighborhoodatlas.medicine.[facility].edu/. Last address used for calculation [address] [facility] 05/09/2023 Comments No Sex and Gender [...] 3-dose series) 2005 Cervical Cancer Screening 2007 HPV Vaccine (1 - 3-dose SCDM series) 2013 Covid-19 Vaccine (2024-2 6 season) 2025 Influenza Vaccine (#1) 2025 Insurance Care Teams Blasting Coal Miner Relationship Specialty Start Date End Date Josias Moeller PCP - General Family Medicine 07/20/15
--- OUTSIDE RECORDS SUMMARY | 2025-06-10 07:47 | XMS_ITS | Encounter Summary ---
Author Organization [facility] Address [address] [place] [address] Care Team Providers Care Office Systems Technology Instructor Name Role Phone Aiden Bailey MD Primary Care Provider [phone] Encounter Details Date Type Department Care Team (Late st Contact Info) Description 09/30/2023 Orders Only [facility] [address] [place] [address] A, Unknown Practice [address] [phone] Social History Tobacco Use Types Packs/Day Years [...] often do you attend chur ch or bahai services? Patient declined 04/17/2023 Do you belong to any clubs o r organizations such as confucianism groups, unions, fraternal or athletic groups, or [...] and heating? Not hard at all 04/17/2023 [facility] of Occupat ional Health - Occupational Stress [...] Office Visit JAIDEN ROGERS [address] [place] [address] [facility]ol E[facility]varria MD [address] [facility] [place] [address] documented as of this encounter Procedures Procedure Name Priority Date/Time Associated Diagnosis Comments SCANNED LABS Routine 09/27/2023 2:01 PM EST documented in this encounter Results * SCANNED LABS (09/27/2023 2:01 PM EST) us Unknown Practice A LAB CHG PERFORMABLES Final Re sult documented in this encounter Visit Diagnoses Not on filedocumented in this encounter Care Teams Office Systems Technology Instructor Relationship Specialty Start Date End Date Aiden Bailey MD [address] [place] [address] PCP - General 03/18/23 documented as of this encounter
--- OUTSIDE RECORDS SUMMARY | 2025-06-10 07:47 | XMS_ITS | Encounter Summary ---
Author Organization [facility] Address [address] [place] [address] Care Team Providers Care Insole And Outsole Splitter Name Role Phone Aiden Bailey MD Primary Care Provider [phone] Encounter Details Date Type Department Care Team (Late st Contact Info) Description 10/25/2023 Abstract [facility] [address] [facility] 110 [place] [phone] Aiden Bailey MD 112 [facility] 110 [place], [place] [id number] Social History Tobacco Use Types Packs/Day Years [...] often do you attend chur ch or religion services? Patient declined 04/17/2023 Do you belong to any clubs o r organizations such as presybeterian groups, unions, fraternal or athletic groups, or [...] and heating? Not hard at all 04/17/2023 [facility] Occupat ional Health - Occupational [...] place to sleep or slept in a retirement (including now)? No 04/17/2023 Comments No Sex [...] EDT Office Visit JAIDEN ROGERS [address] [facility] 210 [place] [address] Amol Echevarria MD [address] [facility] 210 [place] [address] documented as of this encounter Visit Diagnoses Not on filedocumented in this encounter Care Teams Insole And Outsole Splitter Relationship Specialty Start Date End Date Aiden Bailey MD [address] [place] [address] PCP - General 03/18/23 documented as of this encounter
--- OUTSIDE RECORDS SUMMARY | 2025-06-10 07:47 | XMS_ITS | Encounter Summary ---
Author Organization [facility] Address [address] [place] [address] Care Team Providers Care Veterans Service Representative Name Role Phone Aiden Bailey MD Primary Care Provider [phone] Encounter Details Date Type Department Care Team (Late st Contact Info) Description 05/11/2025 Abstract [facility] [address] [facility] 110 [place] [phone] Aiden Bailey MD 112 [facility] 110 [place], [place] [phone] Social History Tobacco Use Types Packs/Day Years [...] How often do you attend chur or zoroastrianism services? Never 05/29/2024 Do you belong to [...] Recorded Patient Health Questionnaire-2 Score 0 05/11/2025 [facility] of Occupat ional Health - Occupational Stress [...] place to sleep or slept in a custodial (including now)? No 04/17/2023 Housing Stability Vital Sign Answer Bhanu e Recorded In the last 12 months, was t here a time when you were not able to pay the mortgage or rent on time? No 05/29/2024 Number of Times Moved in the Last Year Not on fi le 05/29/2024 At any time in the past 12 m [facility], were you homeless or living in a custodial (including now)? No 05/29/2024 Comments No Sex [...] ROGERS [address] [place] [address] Amol Echevarria MD [address] [facility] 210 [place] [address] documented as of this encounter Visit Diagnoses Not on filedocumented in this encounter Care Teams Veterans Service Representative Relationship Specialty Start Date End Date Aiden Bailey MD 112 [facility] 110 [place] [address] PCP - General 03/18/23 documented as of this encounter
--- OUTSIDE RECORDS SUMMARY | 2025-06-10 07:47 | XMS_ITS | Encounter Summary ---
Author Organization [facility] Address [address] [place] [address] Care Team Providers Care Cabinet Builder Name Role Phone Josias Moeller Primary Care Provider Unav ailable Source Comments In the event this information is protected by the Federal Confidentiality of Alcohol and Drug AbusePatient Records regulations: The Federal rules restrict any use of the information to criminally investigate or prosecute any alcohol or drug abuse patient.[facility] Encounter Details Date Type Department Care Team (Late st Contact Info) Description 01/20/2021 Patient Msg Neurology [address] [place], [place] [phone] Provider, Ccf Scheduling Future Appointments. Social History [...] N ot on file 08/03/2020 Data from: https://www.neighborhoodatlas.medicine.[facility].edu/. Last address used for calculation Not on [...] on filedocumented in this encounter Care Teams Cabinet Builder Relationship Specialty Start Date End Date Josias Moeller PCP - General Family Medicine 07/20/15 documented as of this encounter
--- OUTSIDE RECORDS SUMMARY | 2025-06-10 07:47 | XMS_ITS | Encounter Summary ---
Author Organization [facility] Address [address] [place] [address] Care Team Providers Care Digital Performance Analyst Name Role Phone Aiedn Bailey MD Primary Care Provider [phone] Encounter Details Date Type Department Care Team ([facility] Contact Info) Description 05/13/2025 Results Follow-Up [facility] 112 [facility] 110 [place] [address] Millicent Elder PA [address] [facility] 110 [place] [address] Lipid panel Social History Tobacco Use Types Packs/Day Years [...] How often do you attend chur or mormonism services? Never 05/29/2024 Do you belong to any clubs o r organizations such as episcopal groups, unions, fraternal or athletic groups, or [...] Recorded Patient Health Questionnaire-2 Score 0 05/11/2025 [facility] of Occupat ional [...] time in the past [address] [facility], were you homeless or living in [...] 8:30 AM EDT Office Visit NOMAnnetta ROGERS [address] [place] [address] Amol Echevarria MD [address] [place], [place] [phone] documented as of this encounter Visit Diagnoses Not on filedocumented in this encounter Care Teams Digital Performance Analyst Relationship Specialty Start Date End Date Aiden Bailey MD [address] [address] PCP - General 03/18/23 documented as of this encounter
--- OUTSIDE RECORDS SUMMARY | 2025-06-10 07:47 | XMS_ITS | Encounter Summary ---
Author Organization [facility] Address [address] [place] [address] Care Team Providers Care Mortgage Banker Name Role Phone Josias Moeller Primary Care Provider Unav ailable Source Comments In the event this information is protected by the Federal Confidentiality of Alcohol and Drug AbusePatient Records regulations: The Federal rules restrict any use of the information to criminally investigate or prosecute any alcohol or drug abuse patient.[facility] Encounter Details Date Type Department Care Team (Latest Contact Info) Description 07/08/2017 Patient Msg Neurology [address] [phone] Margie Kilgore MD [address] [facility] [address] [place] [address] Anticonvulsant medicaton levels Social History [...] on filedocumented in this encounter Care Teams Mortgage Banker Relationship Specialty Start Date End Date Josias Moeller PCP - General Family Medicine 07/20/15 documented as of this encounter
--- OUTSIDE RECORDS SUMMARY | 2025-06-10 07:47 | XMS_ITS | Encounter Summary ---
Author Organization [facility] Address [address] [place], [place] [phone] Care Team Providers Care Gasket Supervisor Name Role Phone Josias Moeller Primary Care Provider Unav ailable Source Comments In the event this information is protected by the Federal Confidentiality of Alcohol and Drug AbusePatient Records regulations: The Federal rules restrict any use of the information to criminally investigate or prosecute any alcohol or drug abuse patient.[facility] Encounter Details Date Type Department Care Team (Late st Contact Info) Description 01/14/2017 Abstract [place] [address] Larissa Garcia, PhD [address] [phone] Social History Tobacco Use Types Packs/Day Years [...] on filedocumented in this encounter Care Teams Gasket Supervisor Relationship Specialty Start Date End Date Josias Moeller PCP - General Family Medicine 07/20/15 documented as of this encounter
--- OUTSIDE RECORDS SUMMARY | 2025-06-10 07:47 | XMS_ITS | Encounter Summary ---
Author Organization [facility] Address [address] [place] [address] Care Team Providers Care Corporate Compliance Manager Name Role Phone Aiden Bailey MD Primary Care Provider [phone] Encounter Details Date Type Department Care Team (Late st Contact Info) Description 05/13/2025 Abstract [facility] [address] [facility] 110 [place] [phone] Aiden Bailey MD 112 [facility] 110 [place], [place] [phone] Social History Tobacco Use Types Packs/Day Years [...] How often do you attend chur or denominational services? Never 05/29/2024 Do you belong to any clubs o r organizations such as judaism groups, unions, fraternal or athletic groups, or [...] Recorded Patient Health Questionnaire-2 Score 0 05/11/2025 [facility] of Occupat ional Health - Occupational Stress [...] any time in the past 12 m [facility], were you homeless or living in [...] AM EDT Office Visit [facility] [place] ROGERS [address] [place] [address] Amol Echevarria MD [address] [facility] 210 [place] [address] documented as of this encounter Visit Diagnoses Not on filedocumented in this encounter Care Teams Corporate Compliance Manager Relationship Specialty Start Date End Date Aiden Bailey MD [address] [phone] PCP - General 03/18/23 documented as of this encounter
--- OUTSIDE RECORDS SUMMARY | 2025-06-10 07:47 | XMS_ITS | Encounter Summary ---
Author Organization [facility] Address [address] [place] [address] Care Team Providers Care Rotary Driller Helper Name Role Phone Josias Moeller Primary Care Provider Unav ailable Source Comments In the event this information is protected by the Federal Confidentiality of Alcohol and Drug AbusePatient Records regulations: The Federal rules restrict any use of the information to criminally investigate or prosecute any alcohol or drug abuse patient.[facility] Encounter Details Date Type Department Care Team (Late st Contact Info) Description 05/26/2019 Patient Msg Neurology [address] [phone] Jodi Story, FIRE EQUIPMENT INSPECTOR.[facility] [address] [place] [address] Kilgore Social [...] Entry Date Author No 01/14/2017 3:36 PM Miugel Hoover RN documented in this encounter Plan of Treatment Not on file documented as of this encounter Visit Diagnoses Not on filedocumented in this encounter Care Teams Rotary Driller Helper Relationship Specialty Start Date End Date Josias Moeller PCP - General Family Medicine 07/20/15 documented as of this encounter
--- OUTSIDE RECORDS SUMMARY | 2025-06-10 07:47 | XMS_ITS | Encounter Summary ---
Author Organization [facility] Address [address] [place] [address] Care Team Providers Care Education Manager Name Role Phone Aiden Bailey MD Primary Care Provider [phone] Encounter Details Date Type Department Care Team (Late st Contact Info) Description 05/20/2024 Abstract [facility] [address] [facility] 110 [place] [phone] Aiden Bailey MD [address] [facility] 110 [place], [place] [phone] Social History Tobacco Use Types Packs/Day Years [...] How often do you attend chur or yazidism services? Patient declined 04/17/2023 Do you belong to any clubs o r organizations such as taoist groups, unions, fraternal or athletic groups, or [...] Recorded Patient Health Questionnaire-2 Score 0 01/02/2024 [facility] - Occupational Stress Questionnaire Answer Date [...] place to sleep or slept in a prison (including now)? No 04/17/2023 Comments No Sex [...] Office Visit JAIDEN ROGERS [address] [facility] 210 [place] [address] Amol Echevarria MD [address] [facility] [place] [address] documented as of this encounter Visit Diagnoses Not on filedocumented in this encounter Care Teams Education Manager Relationship Specialty Start Date End Date Aiden Bailey MD [address] [place] [address] PCP - General 03/18/23 documented as of this encounter
--- OUTSIDE RECORDS SUMMARY | 2025-06-10 07:47 | XMS_ITS | Encounter Summary ---
Author Organization [facility] Address [address] [place] [address] Care Team Providers Care Coil Cutter Name Role Phone Aiden Bailey MD Primary Care Provider [phone] Encounter Details Date Type Department Care Team (Late st Contact Info) Description 06/12/2024 Abstract [facility] [address] [facility] 110 [place] [phone] Aiden Bailey MD 112 [facility] 110 [place], [place] [phone] Social History Tobacco Use Types Packs/Day Years [...] How often do you attend chur or adventism services? Never 05/29/2024 Do you belong to [...] Recorded Patient Health Questionnaire-2 Score 0 01/02/2024 [facility] of Occupat ional Health - Occupational [...] place to sleep or slept in a fpc (including now)? No 04/17/2023 Housing Stability Vital Sign Answer Bhanu e Recorded In the last 12 months, was t here a time when you were not able to pay the mortgage or rent on time? No 05/29/2024 Number of Times Moved in the Last Year Not on fi le 05/29/2024 At any time in the past [facility] m [facility], were you homeless or living in a fpc (including now)? No 05/29/2024 Comments No Sex [...] AM EDT Office Visit [facility] [place] ROGERS [address] [place] [address] Amol Echevarria MD [address] [facility] 210 [place] [address] documented as of this encounter Visit Diagnoses Not on filedocumented in this encounter Care Teams Coil Cutter Relationship Specialty Start Date End Date Aiden Bailey MD [address] [phone] PCP - General 03/18/23 documented as of this encounter
--- OUTSIDE RECORDS SUMMARY | 2025-06-10 07:47 | XMS_ITS | Encounter Summary ---
Author Organization [facility] Address [address] [place] [address] Care Team Providers Care Matting Press Tender Name Role Phone Aiden Bailey MD Primary Care Provider [phone] Encounter Details Date Type Department Care Team (Late st Contact Info) Description 05/13/2025 Abstract [facility] [address] [facility] 110 [place] [phone] Aiden Bailey MD 112 [facility] 110 [place], [place] [phone] Social History Tobacco Use Types Packs/Day Years [...] How often do you attend chur or shinto services? Never 05/29/2024 Do you belong to any clubs o r organizations such as zoroastrian groups, unions, fraternal or athletic groups, or [...] Health Questionnaire-2 Score 0 05/11/2025 [facility] of Occupat ional Health - Occupational [...] in a mcfp (including now)? No 04/17/2023 Housing Stability Vital [...] were you homeless or living in a mcfp (including now)? No 05/29/2024 Comments No Sex [...] AM EDT Office Visit [facility] [place] ROGERS [address] [place] [address] Amol Echevarria MD [address] [facility] 210 [place] [address] documented as of this encounter Visit Diagnoses Not on filedocumented in this encounter Care Teams Matting Press Tender Relationship Specialty Start Date End Date Aiden Bailey MD [address] [phone] PCP - General 03/18/23 documented as of this encounter
--- OUTSIDE RECORDS SUMMARY | 2025-06-10 07:47 | XMS_ITS | Encounter Summary ---
Author Organization [facility] Address [address] [place] [address] Care Team Providers Care Firewood Cutter Name Role Phone Josias Moeller Primary Care Provider Unav ailable Source Comments In the event this information is protected by the Federal Confidentiality of Alcohol and Drug AbusePatient Records regulations: The Federal rules restrict any use of the information to criminally investigate or prosecute any alcohol or drug abuse patient.[facility] Encounter Details Date Type Department Care Team (Late st Contact Info) Description 03/10/2019 Patient Msg Neurology [address] [phone] Margie Kilgore MD [address] [facility] [address] [place] [address] RE: Appointment Request Social History [...] on filedocumented in this encounter Care Teams Firewood Cutter Relationship Specialty Start Date End Date Josias Moeller PCP - General Family Medicine 07/20/15 documented as of this encounter
--- OUTSIDE RECORDS SUMMARY | 2025-06-10 07:47 | XMS_ITS | Encounter Summary ---
Author Organization [facility] Address [address] [place] [address] Care Team Providers Care Microfilm Operator Name Role Phone Aiden Bailey MD Primary Care Provider [phone] Encounter Details Date Type Department Care Team (Late st Contact Info) Description 05/13/2025 Abstract [facility] [address] [place] [phone] Unallocated, Merari Provider, [address] [phone] Social History Tobacco Use Types Packs/Day Years [...] How often do you attend chur or christian services? Never 05/29/2024 Do you belong to any clubs o r organizations such as hoahaoism groups, unions, fraternal or athletic groups, or [...] Recorded Patient Health Questionnaire-2 Score 0 05/11/2025 [facility] of Occupat ional Health - [...] place to sleep or slept in a usp (including now)? No 04/17/2023 Housing Stability Vital Sign Answer Bhanu e Recorded In the last 12 months, was t here a time when you were not able to pay the mortgage or rent on time? No 05/29/2024 Number of Times Moved in the Last Year Not on fi le 05/29/2024 At any time in the past 12 m [facility], were you homeless or living in a usp (including now)? No 05/29/2024 Comments No Sex [...] AM EDT Office Visit [facility] [place] ROGERS [address] [place] [address] Amol Echevarria MD [address] [place] [address] documented as of this encounter Visit Diagnoses Not on filedocumented in this encounter Care Teams Microfilm Operator Relationship Specialty Start Date End Date Aiden Bailey MD [address] [phone] PCP - General 03/18/23 documented as of this encounter
[2025-06-10 08:12] LABS: Hematocrit 43.2 % (36.0-48.0); Hemoglobin 15.1 g/dL (12.0-16.0); Immature Granulocytes Abs Auto 0.03 10^3/uL (0.00-0.03); Immature Granulocytes Pct Auto 0.5 % (0.0-0.5); Lymphocytes Absolute Auto 1.5 10^3/uL (1.2-3.8); Mean Corpuscular HGB Conc 35.0 g/dL (29.9-35.2); Mean Corpuscular Hemoglobin 31.4 pg (26.7-34.0); Mean Corpuscular Volume 89.8 fL (81.0-99.0); Platelet Count 469 10^3/uL (150-450); Red Blood Count 4.81 10^6/uL (4.20-5.40); White Blood Count 6.6 10^3/uL (4.0-11.0)
== END 2025-06-10 07:43 | disposition home or self-care (01) ==
LOC: LAB 07:43
PROVIDERS: PCP Internal Medicine; Visit Provider Nurse Practitioner Gerontology
DX: D75.839 Thrombocytosis, unspecified (principal)
CPT/HCPCS: 36415; 85025